=== PATIENT | female | born 1945 | race Caucasian/White ===

== ENCOUNTER 2023-04-11 01:03 | Day surgery (SDC) | payer MEDICARE, SELFPAY ==
[2023-04-10 15:41] VITALS: BMI 24.8
[2023-04-11] VITALS (12 sets, daily range): BP systolic 100–138; BP diastolic 58–85; PULSE 78–90; RESP 13–18; TEMP 36.4; O2SAT 96–100
--- NOTE | 2023-04-11 12:16 | WPDHPUPDATE1 ---
History and Physical Update Update Date/Time: 04/11/23 12:16 History and Physical has been reviewed, including an updated exam of the patient. There are NO changes in the patient's condition. Risks, benefits, and alternatives have been discussed and questions answered. Patient agrees to proceed with procedure.
--- NOTE | 2023-04-11 12:16 | WPDMODSED ---
Moderate Sedation Note-Pt Data Patient Data Diagnosis: Aortic stenosis and regurgitation Present Complaint: none Procedure to be performed/Plan: transesophageal echocardiogram Allergies Allergy/AdvReac Type Severity Reaction Status Date / Time No Known Allergies Allergy Unknown Unverified 04/11/23 10:02 Home Medications Medication Instructions Recorded Confirmed Type ascorbic acid (vitamin C) 125 mg 125 mg PO DAILY 04/10/23 04/11/23 History chewable tablet cholecalciferol (vitamin D3) 125 125 mcg PO DAILY 04/10/23 04/11/23 History mcg (5,000 unit) capsule diphenhydramine HCl 50 mg/30 mL 50 mg PO HS 04/10/23 04/10/23 History oral liquid (ZzzQuil) ezetimibe 10 mg tablet 10 mg PO DAILY 04/10/23 04/11/23 History folic acid 1 mg tablet 1 mg PO DAILY 04/10/23 04/11/23 History garlic 400 mg tablet,delayed 400 mg PO DAILY 04/10/23 04/11/23 History release infliximab-abda 100 mg intravenous 100 mg IV DIRECTED 04/10/23 04/10/23 History solution (Renflexis) lactobacillus combination no.8 3 3 cell PO DAILY 04/10/23 04/11/23 History billion cell capsule levothyroxine 50 mcg tablet 50 mcg PO DAILY 04/10/23 04/11/23 History methotrexate sodium 2.5 mg tablet See Rx Instructions .Route .COMPLEX 04/10/23 04/11/23 History multivitamin-ferrous 1 tablet PO DAILY 04/10/23 04/11/23 History fumarate-folic acid 18 mg-400 mcg tablet (Centrum Women) nifedipine 30 mg tablet,extended 30 mg PO DAILY 04/10/23 04/11/23 History release prednisone 5 mg tablet 5 mg PO BID 04/10/23 04/11/23 History psyllium 1 packet PO TID 04/10/23 04/11/23 History tramadol 50 mg tablet 50 mg PO BID 04/10/23 04/11/23 History venlafaxine 37.5 mg tablet 37.5 mg PO DAILY 04/10/23 04/11/23 History vitamin B complex (B 1 tablet PO DAILY 04/10/23 04/11/23 History Complex-Vitamin B12 tablet) Current Medications: see medication list Sedation/Anesthesia: No previous sedation/anesthesia problems (including family history). PMFSH Past Medical History Medical History (Updated 04/11/23 @ 12:18 by Bruce Atkins MD) Aortic regurgitation Aortic stenosis Hypertension Mixed hyperlipidemia Social History Social History Smoking status: Current every day smoker Tobacco type: e-cigarettes/vaping Substance use type: does not use Living arrangements: alone Spiritual care concerns: No Mod Sed Physical Exam Physical Exam Pre Procedural Exam: Normal: Appearance, Eyes, Ears, Nose, Neck ( supple, normal range of motion), Throat ( posterior hypopharynx clear, nonerythematous), Airway ( normal anatomy, no obstruction), Lungs, Heart Size, Heart Rate, Heart Rhythm, Neuro Exam, Abdomen, Liver, Extremities and Skin Hours since solid foods: 12 Hours since liquid intake: 12 Mallampati Classification: class III Internal Medicine - PN: Obj Da Vital Signs Vital Signs: Vital Signs - 24 hr 04/11/23 09:55 04/11/23 11:45 04/11/23 11:50 Temperature 36.4 C Pulse Rate 78 81 78 Respiratory Rate 17 14 13 Blood Pressure 133/66 130/66 133/69 Pulse Oximetry 98 98 96 Oxygen Delivery Room Air Room Air Nasal Cannula Oxygen Flow Rate 3 04/11/23 11:55 04/11/23 12:00 04/11/23 12:05 Temperature Pulse Rate 80 82 84 Respiratory Rate 16 13 13 Blood Pressure 129/58 L 135/69 125/69 Pulse Oximetry 97 99 99 Oxygen Delivery Nasal Cannula Nasal Cannula Nasal Cannula Oxygen Flow Rate 3 3 3 04/11/23 12:10 Temperature Pulse Rate 90 Respiratory Rate 17 Blood Pressure 138/68 Pulse Oximetry 100 Oxygen Delivery Nasal Cannula Oxygen Flow Rate 3 ASA Classification/Sedation ASA Classification/Sedation ASA Class: III Emergent: No Risks: Risks, benefits and alternatives explained and patient/family accepted plan for sedation. Patient re-evaluated immediately prior to sedation.
--- NOTE | 2023-04-11 12:20 | WPDTEECHO ---
[facility] TransEsophageal Echocardiogram Date of procedure: 04/11/23 Procedure Type: transesophageal echocardiogram Diagnosis: aortic stenosis and regurgitation Indications: aortic stenosis and regurgitation Image Quality: acceptable Findings: Brief history present illness: Patient is a pleasant 77 year old female with a history of tobacco abuse, pulmonary hypertension, hypertension, hyperlipidemia, rheumatoid arthritis with complaints of exertional dyspnea who had a 2D echocardiogram performed which was reported as moderate to severe aortic regurgitation however on personal review least moderate aortic stenosis unless significant aortic regurgitation apparent we given discrepancy and patient's complaints of shortness of breath she was referred for transesophageal echocardiogram for further evaluation. Procedure in detail: After verbal and written informed consent was obtained the patient risks, benefits, and alternatives explained in detail the patient agreed to proceed with the plan of care as outlined above. The patient was evaluated at bedside in the [facility] procedure room. The posterior oropharynx, neck, and jaw angle all within normal limits on examination. Lungs were clear to auscultation. See pre-sedation note for further details The patient was then placed in the appropriate 30 to 45 degree angle supine position at a slight left lateral decubitus position. Patient was monitored throughout the study with telemetry, oxygen saturation, end-tidal CO2 monitoring, blood pressure, heart rate, and respirations. The posterior hypopharynx was then locally anesthetized using repeated administration of Hurricaine spray as well as gargled viscous lidocaine. After local anesthetic of the posterior hypopharynx was achieved and the oral bite block placed, moderate sedation was administered. After confirmation of adequate moderate sedation, the transesophageal echocardiogram probe was advanced through the oral bite block into the posterior hypopharynx and into the esophagus easily and without complication. Multiple, multiplanar echocardiographic images were obtained in multiple standard re- projections. Pulsed wave, continuous-wave, and color-flow Doppler were utilized in conjunction with this study. At the conclusion of the study, the transesophageal echocardiogram probe was removed easily and without complication. The patient tolerated the procedure well without difficulty. Patient was in sinus rhythm throughout the study. Moderate Sedation/Anesthesia administration: Patient reports no prior problems with sedation/anesthesia. Please see pre-sedation noted for physical examination documentation. As noted above, after adequate local anesthesia of the posterior hypopharynx was achieved, a total of 2 mg intravenous Versed and a total of 50 mcg intravenous Fentanyl in multiple divided doses was administered for moderate sedation. Sedation start time was 1148 and end time was 1214 for a total intra-service/procedure face-face time of 26 minutes. Sedation was administered by a qualified/certified observer Erendira Burkett RN under my supervision with intra-procedure [id number] observation and management throughout the entirety of the procedure. There were no other issues or complications and patient tolerated the procedure well. See post-anesthesia documentation. FINDINGS: LEFT VENTRICLE: Size and systolic function were within normal limits without wall motion abnormalities with ejection fraction of 75% with mild to moderate concentric left ventricular hypertrophy. RIGHT VENTRICLE: Size and systolic function within normal limits. LEFT ATRIUM: mild enlargement RIGHT ATRIUM: Normal size. echogenic mobile structure arising from the posterior wall most likely consistent with prominent remnant eustachian valve which is a normal variant. in other views there appeared to be an echogenic structure unclear for his truly within the right atrium
== END 2023-04-11 13:30 | disposition home or self-care (01) ==
PROVIDERS: PCP Internal Medicine; Visit Provider Internal Medicine Cardiovascular Disease
PROC: (CPT 93312; principal; 2023-04-11 11:00)
DX: I35.2 Nonrheumatic aortic (valve) stenosis with insufficiency (principal); R06.00 Dyspnea, unspecified; I10 Essential (primary) hypertension; E78.5 Hyperlipidemia, unspecified; I27.20 Pulmonary hypertension, unspecified; Z72.0 Tobacco use
CPT/HCPCS: 93312; 93320; 93325; J2250; J2310; J3010; J7040

== ENCOUNTER 2023-06-27 08:50 | Outpatient (CLI) | payer MEDICARE, SELFPAY ==
--- NOTE | 2023-07-02 16:56 | WPDPFTINT ---
PFT Procedure Performed PFT Procedure Performed Plethysmography (Lung Vol) Diffusing Cap (DLCO) Flow Vol Loop Spirometry w/o Bronchodil PFT Interpretation DOS: 06/27/2023 REQUESTING: Dary Atkins MD REASON FOR TESTING: Dyspnea on exertion PULMONARY FUNCTION TESTS Results are reliable and reproducible. Spirometry: FEV1 is 1.73 L, 109%, normal. FVC is 2.32 L, 113%, normal. FEV1/FVC is 74%, normal. No bronchodilator was not given. Lung volumes: Total lung capacity is 4.28 L, 103%, normal. Residual volume is 1.67 L, 81%, normal. RV/TLC is 39%, normal. Airway resistance is normal. Diffusion: DLCO is 15.3, 90%, normal. DLCO/VA is 4.82, 109%, normal. Flow volume loop: Normal. IMPRESSION: Normal spirometry, normal lung volumes, normal diffusion. No bronchodilator was given. No prior study is available for comparison. Yris Ibrahim MD
== END 2023-06-27 08:51 | disposition home or self-care (01) ==
PROVIDERS: PCP Internal Medicine; Visit Provider Internal Medicine Cardiovascular Disease
DX: R06.09 Other forms of dyspnea (principal); Z72.0 Tobacco use
CPT/HCPCS: 94375; 94726; 94729

== ENCOUNTER 2024-05-07 12:04 | Outpatient (CLI) | payer MEDICARE, SELFPAY ==
--- NOTE | ~2024-05-07 | XR_ITS ---
3 VIEWS LUMBAR SPINE Ordering provider: Noman Robles, History: . LOW BACK PAIN . Comparison: None. FINDINGS: VERTEBRAL BODIES: No visible fracture or subluxation. Postoperative changes in the lower lumbar area. Degenerative changes of the spine. DISK SPACES: Degenerative changes involving the lower thoracic and all lumbar area. SOFT TISSUES: Normal. Atherosclerotic changes. Right hip arthroplasty. IMPRESSION: No acute osseous abnormality lumbar spine. Reviewed, dictated and finalized at location A.
[2024-05-07 13:01] LABS: Basophils Percent Auto 0.4 % (0.2-1.2); Eosinophils Percent Auto 0.3 % (0-4.4); Hematocrit 42.8 % (37.0-47.0); Hemoglobin 13.9 g/dL (12.0-15.0); Immature Granulocyte Absolute 0.02 K/mm3 (0.00-0.031); Immature Granulocyte Percent A 0.3 % (0-0.5); Lymphocytes Absolute Auto 0.59 K/mm3 (0.9-3.2); Lymphocytes Percent Auto 8.7 % (18.3-44.2); Mean Corpuscular HGB Conc 32.5 g/dl (32-36); Mean Corpuscular Hemoglobin 33.4 pg (26-34); Mean Corpuscular Volume 102.9 fl (80-100); Mean Platelet Volume 9.8 fl (7.4-10.4); Monocytes Absolute Auto 0.3 K/mm3 (0.1-0.6); Monocytes Percent Auto 4.7 % (2.6-8.5); Neutrophils Absolute Auto 5.8 K/mm3 (1.3-6.7); Neutrophils Percent Auto 85.6 % (45.5-73.1); Platelet Count Result 300 k/mm3 (150-375); Red Blood Count 4.16 M/mm3 (4.2-5.4); Red Cell Distribution Width 14.5 % (11.5-14.5); White Blood Count 6.8 K/mm3 (4.5-10.0)
[2024-05-07 13:48] LABS: Free T4 Free Thyroxine 1.18 ng/mL (0.78-2.19)
[2024-05-07 13:53] LABS: Alanine Aminotransferase 19 U/L (6-35); Albumin Level 4.4 g/dL (3.5-5.1); Alkaline Phosphatase 76 U/L (38-126); Anion Gap 4 mmol/L (4-12); Aspartate Amino Transferase 30 U/L (14-36); Bilirubin,Total 0.6 mg/dL (0.2-1.3); Blood Urea Nitrogen 19 mg/dL (7-17); Calcium 9.3 mg/dL (8.4-10.2); Carbon Dioxide 32 mmol/L (22-30); Chloride 103 mmol/L (98-107); Cholesterol 240 mg/dL (0-200); Estimated Glomerular Filt Rate > 60; Glucose 108 mg/dL (65-110); Potassium 4.4 mmol/L (3.4-5.0); Sodium 139 mmol/L (137-145); Triglycerides 112 mg/dL (<150)
[2024-05-07 13:56] LABS: LDL Cholesterol Direct 100 mg/dL
[2024-05-07 15:15] LABS: Folic Acid > 20.0 ng/mL (2.76->20)
[2024-05-07 15:19] LABS: HDL Direct 118 mg/dL
[2024-05-08 11:03] LABS: Triiodothyronine T3 Free 2.5 pg/mL (2.3-4.2)
== END 2024-05-07 12:05 | disposition home or self-care (01) ==
PROVIDERS: PCP Internal Medicine; Visit Provider Internal Medicine
DX: M54.50 Low back pain, unspecified (principal); R53.83 Other fatigue; I10 Essential (primary) hypertension
CPT/HCPCS: 36415; 72110; 80053; 80061; 82607; 82746; 84439; 84443; 84481; 85025

== ENCOUNTER 2024-07-10 08:16 | Outpatient (CLI) | payer MEDICARE, SELFPAY ==
--- NOTE | ~2024-07-10 | MR_ITS ---
Procedure: MR lumbar spine wo/w con Ordering provider: Batool De La Cruz, COMPRESSED GASES TESTER History:79 years Female with . Radiculopathy, lumbar region . Comparison: None. Technique: MRI lumbar spine with and without contrast. 10 mL MultiHance was given IV. FINDINGS: CONUS MEDULLARIS: Normal in position and appearance with no abnormal enhancement. The conus ends at t he level of L1-L2. LUMBAR VERTEBRAL BODIES: Postoperative changes at the level of L3, L4 and L5. No definite hardware fa ilure seen. Minimal retrolisthesis at the level of L1-L2 and T12-L1. Slight loss of height anteriorly seen in T11and L1 most likely chronic. Edema in T12 is seen acute compression cannot be excluded. Ot herwise, Normal height and alignment. no compression fracture. Heterogenous marrow signal most likely due to marrow reconversion. No abnormal marrow enhancement. DISK SPACES: Narrowing of all disc spaces is seen except L5-S1. T11-T12: No stenosis. Mild disc bulge. Right posterolateral disc protrusion with osteophyte and with slight narrowing of the right lateral recess. T12-L1: No stenosis. Diffuse disc bulge with nerve root in the right and left lateral recess more on the right. L1-L2: No stenosis. Mild thickening of the ligamenta flava. L2-L3: No stenosis. L3-L4: No stenosis. L4-L5: No stenosis. L5-S1: Mild spinal canal stenosis secondary to broad based disc bulge, facet arthropathy, and ligame ntum flavum hypertrophy. Nerve root laterally is seen in the left. PARASPINOUS SOFT TISSUES: Enhancing soft tissue is seen around T12 No abnormal paraspinous enhancemen t. Small left renal cyst. IMPRESSION: Edema in T12 with postcontrast enhancement and surrounding enhancing soft tissue which may indicate a cute compression. Osteomyelitis is not excluded. Follow-up is advised. Postoperative changes. Multilevel degenerative disc. Reviewed, dictated and finalized at location A. IMPRESSION: Edema in T12 with postcontrast enhancement and surrounding enhancing soft tissu e which may indicate acute compression. Osteomyelitis is not excluded. Follow-u p is advised. Postoperative changes. Multilevel degenerative disc.
== END 2024-07-10 08:17 ==
LOC: MICIMG 08:17
PROVIDERS: PCP Nurse Practitioner Family; Visit Provider Nurse Practitioner Family
DX: M54.16 Radiculopathy, lumbar region (principal); M51.36 Other intervertebral disc degeneration, lumbar region
CPT/HCPCS: 72158; A9577

== ENCOUNTER 2024-07-14 15:33 | Outpatient (CLI) | payer MEDICARE, SELFPAY ==
--- NOTE | ~2024-07-14 | MR_ITS ---
EXAMINATION: MR thoracic spine wo/w con DATE: 07/14/2024 16:17 INDICATION: Thoracic spondylosis. Low back pain. TECHNIQUE: Magnetic resonance imaging (MRI) of the thoracic spine was performed without and with 10 m L MultiHance intravenous contrast. COMPARISON: Lumbar spine radiographs 05/07/2024, MRI 07/10/24 FINDINGS: There is 13 degrees dextroscoliosis of thoracic spine and 15 degrees levoscoliosis of thora columbar spine. There are changes of anterior fusion procedure from C4 to C6 with anterior plate and screws. There are changes of posterior fusion procedure from L3 to L5 with pedicle screws. There is 3 mm anterolisthesis of T10 on T11. There is mild chronic anterior wedging of T7, T11, L1, and L2 vert ebral bodies. There is a burst fracture of inferior endplate of T12 with 1/5 loss of height and edema -like signal intensity. There is decreased disc height at many thoracic levels, severe from T8-T9 thr ough L2-L3. At T1-T2, there is a central protrusion with mild central canal stenosis. At T2-T3, there is a central extrusion with mild central canal stenosis. At T6-T7, there is a left central extrusion with mild central canal stenosis. The discs are bulging from T7-T8 through L2-L3 with mild central c anal stenosis. There is multilevel facet joint osteoarthritis, severe at many levels. There is multil evel mild neural foraminal stenosis bilaterally. On the right, there is moderate neural foraminal matt nosis at T10-T11 and L1-L2. On the left, there is moderate neural foraminal stenosis at T7-T8, T8-T9, and T10-T11. 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 IMPRESSION: 1. Subacute T12 burst fracture. 2. Severe thoracic spondylosis. 3. Scoliosis. 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 Reviewed, dictated and finalized at location A.
== END 2024-07-14 15:34 ==
LOC: MICIMG 15:33
PROVIDERS: PCP Nurse Practitioner Family; Visit Provider Nurse Practitioner Family
DX: M47.9 Spondylosis, unspecified (principal); S22.081A Stable burst fracture of T11-T12 vertebra, initial encounter for closed fracture; M43.04 Spondylolysis, thoracic region; M41.9 Scoliosis, unspecified; Q06.4 Hydromyelia
CPT/HCPCS: 72157; A9577

== ENCOUNTER 2024-07-29 15:51 | Outpatient (CLI) | payer MEDICARE, SELFPAY ==
--- NOTE | ~2024-07-29 | XR_ITS ---
3 VIEWS LUMBAR SPINE Ordering provider: Batool De La Cruz, PLANNED GIVING OFFICER History: . LUMBAR RADICULAR PAIN . Comparison: May 15, 2024 FINDINGS: VERTEBRAL BODIES: No visible fracture or subluxation. Postoperative changes in the lower lumbar area. Right hip arthroplasty. Vertebroplasty of T12. DISK SPACES: Normal. SOFT TISSUES: Vascular calcifications. Right sacroiliitis. IMPRESSION: No acute osseous abnormality lumbar spine. Postoperative changes in the lower lumbar area. Reviewed, dictated and finalized at location A.
== END 2024-07-29 15:52 | disposition home or self-care (01) ==
LOC: MICIMG 15:52
PROVIDERS: PCP Nurse Practitioner Family; Visit Provider Nurse Practitioner Family
DX: M54.16 Radiculopathy, lumbar region (principal); Z98.890 Other specified postprocedural states
CPT/HCPCS: 72110

== ENCOUNTER 2024-11-06 13:44 | Outpatient (CLI) | payer MEDICARE, SELFPAY ==
[2024-11-06 14:47] LABS: Add Urine Microscopic? NO; Appearance Urine Clear (Clear); Basophils Percent Auto 0.2 % (0.2-1.2); Bilirubin Urine Negative (Negative); Blood Urine Negative (Negative); Color Urine Yellow (Yellow); Eosinophils Percent Auto 0.2 % (0-4.4); Glucose Urine UA Negative (Negative); Hematocrit 41.4 % (37.0-47.0); Hemoglobin 13.3 g/dL (12.0-15.0); Immature Granulocyte Absolute 0.07 K/mm3 (0.00-0.031); Immature Granulocyte Percent A 0.7 % (0-0.5); Ketones Urine Negative (Negative); Leukocyte Esterase Ur Negative LEU/UL (Negative); Lymphocytes Absolute Auto 0.66 K/mm3 (0.9-3.2); Lymphocytes Percent Auto 6.4 % (18.3-44.2); Mean Corpuscular HGB Conc 32.1 g/dl (32-36); Mean Corpuscular Hemoglobin 33.3 pg (26-34); Mean Corpuscular Volume 103.8 fl (80-100); Monocytes Absolute Auto 0.3 K/mm3 (0.1-0.6); Monocytes Percent Auto 3.3 % (2.6-8.5); Neutrophils Absolute Auto 9.3 K/mm3 (1.3-6.7); Neutrophils Percent Auto 89.2 % (45.5-73.1); Nitrate Urine Negative (Negative); Platelet Count Result 366 k/mm3 (150-375); Protein Urine Negative (Negative); Red Blood Count 3.99 M/mm3 (4.2-5.4); Red Cell Distribution Width 13.4 % (11.5-14.5); Specific Grav Ur 1.022 (1.001-1.035); Urobilinogen Urine 0.2 mg/dL (<2.0); White Blood Count 10.4 K/mm3 (4.5-10.0); pH Urine 5.5 (5.0-9.0)
[2024-11-06 15:15] LABS: Erythrocyte Sedimentation Rate 39 mm/hr (0-20)
[2024-11-06 15:18] LABS: Alanine Aminotransferase 20 U/L (6-35); Albumin Level 4.4 g/dL (3.5-5.1); Alkaline Phosphatase 81 U/L (38-126); Anion Gap 5 mmol/L (4-12); Aspartate Amino Transferase 36 U/L (14-36); Bilirubin,Total 0.6 mg/dL (0.2-1.3); Blood Urea Nitrogen 19 mg/dL (7-17); CRP 2.9 mg/dL (<1.0); Calcium 9.4 mg/dL (8.4-10.2); Carbon Dioxide 31 mmol/L (22-30); Chloride 101 mmol/L (98-107); Estimated Glomerular Filt Rate > 60; Glucose 108 mg/dL (65-110); Sodium 137 mmol/L (137-145)
== END 2024-11-06 13:45 | disposition home or self-care (01) ==
LOC: ANHLAB 13:46
PROVIDERS: PCP Internal Medicine; Visit Provider Nurse Practitioner Family
DX: Z01.818 Encounter for other preprocedural examination (principal); Z79.899 Other long term (current) drug therapy
CPT/HCPCS: 36415; 80053; 81003; 85025; 85652; 86140

== ENCOUNTER 2025-04-27 14:04 | Outpatient (CLI) | payer MEDICARE, SELFPAY ==
--- NOTE | ~2025-04-27 | XR_ITS ---
Lumbosacral Spine: AP and lateral views Clinical History: Pain COMPARISON: 1124 Findings: The normal lordotic curve is maintained. Stable vertebroplasty at T12. Stable posterior fus ion from L3 through L5. Advanced degenerative tearing at L1-L2 and L2-L3 present. Stable probable fac et arthropathy. Neurostimulator device now in place. The sacroiliac joints are normally outlined. Impression: Stable degenerative changes of the lumbar spine. Stable posterior and interbody fusion from L3 throug h L5. Stable T12 compression fracture with vertebroplasty. Reviewed, dictated and finalized at location M. Impression: Stable degenerative changes of the lumbar spine. Stable posterior and interbody fusion from L3 through L5. Stable T12 compression fracture with vertebroplasty .
== END 2025-04-27 14:05 | disposition home or self-care (01) ==
LOC: MICIMG 14:06
PROVIDERS: PCP Internal Medicine; Visit Provider Nurse Practitioner Family
DX: M47.816 Spondylosis without myelopathy or radiculopathy, lumbar region (principal); S22.080D Wedge compression fracture of T11-T12 vertebra, subsequent encounter for fracture with routine healing; X58.XXXD Exposure to other specified factors, subsequent encounter; Z98.1 Arthrodesis status
CPT/HCPCS: 72110

== ENCOUNTER 2025-04-29 10:18 | Outpatient (CLI) | payer MEDICARE, SELFPAY ==
--- NOTE | ~2025-04-29 | DEXA_ITS ---
Bone Density Report Name: TAMIR NORMAN Age: 79 Sex: Female Ethnicity: White Date of : 1945 Indication: postmenopausal; screening for osteoporosis; height loss; inflammatory bowel disease; prior fracture; hysterectomy; rheumatoid arthritis; Referring Provider: LISA JONES Study: Bone densitometry was performed. Exam Date: April 29, 2025 Accession number: [id number] Bone Density: Region BMD T-score Z-score Classification AP Spine(L1, L2) 1.034 0.5 3.0 Normal Femoral Neck (Left) 0.623 -2.0 0.3 Osteopenia Total Hip (Left) 0.828 -0.9 1.2 Normal World Health Organization criteria for BMD impression classify patients as: Normal (T-score at or above -1.0), Osteopenia (T-score between -1.0 and -2.5), or Osteoporosis (T-score at or below -2.5). 10-year Fracture Risk: FRAX not reported because: Prior hip or vertebral fracture Clinical Information Provided by Patient: Have had a previous hip or vertebral fracture Has had a low trauma fracture Smokes Has rheumatoid arthritis Has used the following medications: Vitamin D, Calcium Has the following medical conditions: Inflammatory bowel diseases, Hysterectomy Patient maximum height was 60 Menopause Age: 22 No regular weight bearing exercise Drinks caffeinated beverages Onset of menses at age 11 Number of children 2 Impression: The patient has low bone mass, based on the Left Femoral Neck T-score. The patient has risk factors, including: smoking, previous fracture. Discussion: INCREASED RISK OF FRACTURE DUE TO HISTORY OF FRACTURE. The patient's previous fracture puts the patient at high risk of a future fracture. In untreated patients, the risk of osteoporotic fracture increases approximately two-fold for each 1.0 SD decrease in T-score. Low bone density is not the only risk factor for fracture; also consider factors such as patient's age, frailty or poor health, risk of falling, risk of injury, previous osteoporotic fracture, family history of osteoporosis, cigarette smoking, low body weight, etc. Not everyone with a low trauma fracture has osteoporosis; osteomalacia and other metabolic bone disorders should also be considered. Patients who have osteoporosis should be evaluated for specific diseases and conditions (secondary causes) that may cause or contribute to bone loss and fracture risk. National Osteoporosis Foundation (NOF) recommends pharmacologic intervention for patients with a prior hip or vertebral fracture regardless of BMD T-score. The patient should follow a healthful lifestyle (good nutrition with adequate calcium and vitamin D, and appropriate weight-bearing exercise). Follow-Up: Consider a repeat BMD and Vertebral Fracture Assessment (VFA) exam in 2 years or sooner if medically necessary, to reassess this patient's status. Reported by: MARION on 04/29/2025 10:39:00 AM. Reviewed, dictated and finalized at location A.
== END 2025-04-29 10:19 | disposition home or self-care (01) ==
LOC: MICIMG 10:19
PROVIDERS: PCP Internal Medicine; Visit Provider Internal Medicine
DX: M85.852 Other specified disorders of bone density and structure, left thigh (principal); Z78.0 Asymptomatic menopausal state
CPT/HCPCS: 77080

== ENCOUNTER 2025-08-11 15:47 | Emergency (ER) | payer MEDICARE, SELFPAY ==
--- OUTSIDE RECORDS SUMMARY | 2025-08-09 13:38 | XMS_ITS | Encounter Summary ---
Author Organization [facility] Healthcare Address [address] [place] [address] Care Team Providers Care Theoretical Physicist Name Role Phone Noman Robles MD Primary Care Provider + [phone] Gabe Cee MD Unavailable [phone] Encounter Details Date Type Department Care Team (Latest Contact Info) Description 08/09/2025 1:38 PM CDT - 08/09/2025 11:59 PM CDT Hospital Encounter [facility] MOB 1 DIAG IMG [address] [place] [address] Wheezing Discharge Disposition: Discharge to home or self care Social History Tobacco Use Types Packs/Day Years Used Date Smoking Tobacco: Former Cigarettes 1.5 40 1 - 2010 Smokeless Tobacco: Never Comments:Patients currently vapes Alcohol Use Standard Drinks/Week Comments Yes 0 (1 standard drink = 0.6 oz pur e alcohol) rare AUDIT-C Answer Date Recorded Q1: How often do you have a drink containing alc ohol? Monthly or less 05/23/2022 Q2: How many drinks containi ng alcohol do you have on a typical day when you are drinking? 1 or 2 05/23/2022 Q3: How often do you have si x or more drinks on one occasion? 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 atorvastatin (LIPITOR) 10 mg tabletIndications :Monoclonal gammopathy Take 1 tablet (10 mg total) by mouth daily 07/26/2025 cholecalciferol (VITAMIN D-3) 2,000 unit capsule 1 capsule (2,000 Units total) cyanocobalamin (Vitamin B-12) 500 mcg tabletIndications :Prevention of Vitamin B12 Deficiency Take 1 tablet (500 mcg total) by mouth daily ezetimibe (ZETIA) 10 mg tablet Take 1 tablet (10 mg total) by mouth daily 01/23/2023 folic acid (FOLVITE) 1 mg tablet 0 12/12/2018 folic acid-vit B6-vit B12 2.5-25-1 mg tablet Take by mouth 05/08/2021 garlic 300 mg capsule Take by mouth levothyroxine (SYNTHROID, LEVOTHROID) 50 mcg tablet 02/10/2019 methotrexate 2.5 mg tablet TK 4 TS PO Q 7 DAYS 2 01/23/2019 NIFEDIPINE CC 30 mg 24 hr tablet TK 1 T PO QD 5 01/28/2019 predniSONE (DELTASONE) 2.5 mg tabletIndications :Monoclonal gammopathy Take 1 tablet (2.5 mg) by mouth daily 08/09/2025 traMADol (ULTRAM) 50 mg tablet TK 1 T PO TID PRN 2 01/28/2019 venlafaxine XR (EFFEXOR-XR) 75 mg 24 hr capsuleIndication s:Monoclonal gammopathy Take 1 capsule (75 mg total) by mouth daily 07/29/2025 documented as of this encounter Discharge Disposition Disposition Code Departure Means Destination Discharge to home or self care documented in this encounter Plan of Treatment Not on file documented as of this encounter Procedures Procedure Name Priority Date/Time Associated Diagnosis Comments XR CHEST PA LATERAL 2 VIEWS Schedule Routine, Read Routine (OP Routine) 08/09/2025 2:29 PM CDT Wheezing documented in this encounter Results * X-Ray chest 2 views (08/09/2025 2:29 PM CDT) Anatomical Region Laterality Modality Body, Chest N/A Computed Radiogr aphy 08/10/2025 1:51 PM CDT Narrative 08/10/2025 1:55 PM CDT EXAM DESCRIPTION: XR CHEST PA LATERAL 2 VIEWS REASON FOR STUDY: Wheezing Pt states she has had shortness of breath for a while, wheezing at dr appt today TECHNIQUE: 2 radiographic view(s) of the chest. COMPARISON: 12/08/2015. FINDINGS: LUNGS: There is no discrete consolidation. Granulomatous calcifications are present bilaterally. There is no effusion or pneumothorax. HEART/MEDIASTINUM: Cardiac silhouette and mediastinal contours are within normal limits. Atherosclerotic vascular calcifications are present. LINES/TUBES: Spinal stimulator leads are noted, terminating at approximately T6. Bilateral shoulder arthroplasty hardware is present. Cervical fusion hardware. BONES: There are kyphoplasty changes and compression fracture deformity at what appears to be the T12 level. Correlate with procedural history. There is a compression deformity suggested at T11. Partial visualization of lumbar fusion hardware. IMPRESSION: No acute cardiopulmonary process. Chronic compression deformity and kyphoplasty changes at T12. There is also compression deformity suggested at T11, not well evaluated on this examination. Correlate with clinical history as well as any point tenderness on clinical exam. Dedicated radiographs can be obtained as warranted on a clinical basis. THIS IS AN ELECTRONICALLY VERIFIED FINAL REPORT 08/10/2025 1:55 PM - Electronically signed by Rimma Burrell M.D. TW: TW Report ID: [id number] Reading Location: [id number] Procedure Note Rimma Burrell MD - 08/10/2025 EXAM DESCRIPTION: XR CHEST PA LATERAL 2 VIEWS REASON FOR STUDY: Wheezing Pt states she has had shortness of breath for a while, wheezing at drappt today TECHNIQUE: 2 radiographic view(s) of the chest. COMPARISON: 12/08/2015. FINDINGS: LUNGS: There is no discrete consolidation. Granulomatous calcifications are present bilaterally. There is no effusion orpneumothorax. HEART/MEDIASTINUM: Cardiac silhouette and mediastinal contours are within normal limits. Atherosclerotic vascular calcifications are present. LINES/TUBES: Spinal stimulator leads are noted, terminating atapproximately T6. Bilateral shoulder arthroplasty hardware is present. Cervical fusion hardware. BONES: There are kyphoplasty changes and compression fracture deformityat what appears to be the T12 level. Correlate with procedural history.There is a compression deformity suggested at T11. Partial visualization oflumbar fusion hardware. IMPRESSION: No acute cardiopulmonary process. Chronic compression deformity and kyphoplasty changes at T12. There isalso compression deformity suggested at T11, not well evaluated on this examination. Correlate with clinical history as well as any pointtenderness on clinical exam. Dedicated radiographs can be obtained as warranted on a clinical basis. THIS IS AN ELECTRONICALLY VERIFIED FINAL REPORT 08/10/2025 1:55 PM - Electronically signed by Rimma Burrell M.D. TW: KAY Report ID: [id number] Reading Location: [place] [address] FINANCIAL SERVICES AUDITOR IMG XR PROCEDURES Kaylie l Result documented in this encounter Visit Diagnoses Diagnosis Wheezing documented in this encounter Care Teams Theoretical Physicist Relationship Specialty Start Date End Date Noman Robles MD PCP - General 02/18/18 Gabe Cee MD [address] [place] [address] Consulting Physician Rheumatology 08/17/24 documented as of this encounter
--- OUTSIDE RECORDS SUMMARY | 2025-08-09 13:38 | XMS_ITS | Encounter Summary ---
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 TW: TW Report ID: [id number] Reading Location: [id number] Procedure Note Rimma Burrell MD - 08/10/2025 [...] Rimma Burrell M.D. TW: KAY Report ID: [id number] Reading Location: [place] [address] COUNTER TOP MAKER IMG XR PROCEDURES Kaylie l Result documented in this encounter Visit Diagnoses Diagnosis Wheezing documented in this encounter Care Teams Meter Reading Clerk Relationship Specialty Start Date End Date Noman Robles MD PCP - General 02/18/18 Gabe Cee MD [address] [place] [address] Consulting Physician Rheumatology 08/17/24 documented as of this encounter
--- NOTE | ~2025-08-11 | XR_ITS ---
EXAMINATION: XR chest 2V 08/11/2025 16:58 INDICATION: Chest pain and shortness of breath PROCEDURE: 2 view chest COMPARISON: No prior studies for comparison. FINDINGS: The lungs are clear. The cardiomediastinal silhouette is within normal limits. There are no pleural effusions. There is no pneumothorax suspected. There is a wedge compression fracture of a lower thoracic vertebra treated with vertebroplasty changes. Spinal stimulator leads overlying the mid thoracic spine. There are bilateral shoulder arthroplasties. There are calcified granulomas in both lungs. IMPRESSION: 1: NO ACUTE CARDIOPULMONARY DISEASE. Reviewed, dictated and finalized at location O.
--- NOTE | ~2025-08-11 | CT_ITS ---
EXAMINATION: CTA brain carotid DATE: 08/11/2025 18:06 CDT INDICATION: Dizziness TECHNIQUE: Computed tomographic angiography (CTA) of the head was performed without and with 100 mL Omnipaque-350 intravenous contrast. CTA of the neck was performed with intravenous contrast. The dose-length product was 1486.92 mGy-cm. Maximum intensity projection and volume rendered 3D-reconstructions were created by the technologist on a separate workstation. COMPARISON: None. FINDINGS: HEAD CTA: Generalized atrophy. There are scattered mild periventricular and subcortical white matter changes, most likely related to small vessel ischemic disease (microangiopathy). There is chronic left lacunar infarction of the internal capsule. There is intracranial atherosclerosis. No acute intracranial hemorrhage or infarction. No ventriculomegaly or midline shift. Mild mucosal thickening of the right maxillary sinus. Mastoids are pneumatized. No depressed skull fractures. Codominant vertebral arteries. The anterior, middle and posterior cerebral arteries are within normal limits without significant stenosis, occlusion or aneurysm. NECK CTA: There is mild atherosclerosis of the proximal internal carotid arteries with 35% stenosis in the right internal carotid artery proximally and less than 10% stenosis in the left internal carotid artery. No evidence for carotid dissection. The vertebral arteries are normal in course and caliber through their extent. The origin of the vertebral and carotid arteries are patent. No cervical lymphadenopathy. IMPRESSION: 1: No acute intracranial abnormality. 2: Chronic left lacunar infarction. 3: No significant vascular abnormality of the head or neck. Reviewed, dictated and finalized at location O.
--- OUTSIDE RECORDS SUMMARY | 2025-08-11 15:50 | XMS_ITS | Encounter Summary ---
Author Organization [facility] Healthcare Address [address] [place] [address] Care Team Providers Care Belt Brander Name Role Phone Noman Robles MD Primary Care Provider + [phone] Gabe Cee MD Unavailable [phone] Encounter Details Date Type Department Care Team (Late st Contact Info) Description 10/30/2024 Orders Only [facility] [address] [place] [id number] Scanning, Provider Social History Tobacco Use Types Packs/Day Years Used Date Smoking Tobacco: Former Cigarettes 1.5 40 1 971 - 2010 Smokeless Tobacco: Never Comments:Patients currently [...] on file 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 Gender Identity Not on file Sexual Orientation Not on file documented as of this encounter Plan of Treatment Not on file documented as of this encounter Procedures Procedure Name Priority Date/Time Associated Diagnosis Comments SCAN - LABS 10/30/2024 documented in this encounter Results * SCAN - LABS (10/30/2024) us Provider Scanning Final Result documented in this encounter Visit Diagnoses Not on filedocumented in this encounter Care Teams Belt Brander Relationship Specialty Start Date End Date Noman Robles MD PCP - General 02/18/18 Gabe Cee MD [address] [place] [address] Consulting Physician Rheumatology 08/17/24 documented as of this encounter
--- OUTSIDE RECORDS SUMMARY | 2025-08-11 15:50 | XMS_ITS | Clinical Summary ---
Author Organization [facility] Address [address] [place] [address] Phone Care Team Providers Care Internet Researcher Name Role Phone Noman Robles MD Primary Care Provider + [phone] Gabe Cee MD Unavailable [phone] Allergies Active Allergy Reactions Criticality Noted Date Comments Oxycodone Other (See comments) Low 11/03/2024 Dxstzmm-Rfz-Byi Reductase Inhibitors Fatigue Low 03/07/2023 atorvastatin Medications levothyroxine (SYNTHROID, LEVOTHROID) 50 mcg tablet 9 Active NIFEDIPINE CC 30 mg 24 hr tablet TK 1 T PO QD 5 9 Active traMADol (ULTRAM) 50 mg tablet TK 1 T PO TID PRN 2 9 Active folic acid (FOLVITE) 1 mg tablet 0 9 Active methotrexate 2.5 mg tablet TK 4 TS PO Q 7 DAYS 2 9 Active cholecalciferol (VITAMIN D-3) 2,000 unit capsule 1 capsule (2,000 Units total) Active cyanocobalamin (Vitamin B-12) 500 mcg tabletIndicatio ns:Prevention of Vitamin B12 Deficiency Take 1 tablet (500 mcg total) by mouth daily Active folic acid-vit B6-vit B12 2.5-25-1 mg tablet Take by mouth 1 Active ezetimibe (ZETIA) 10 mg tablet Take 1 tablet (10 mg total) by mouth daily 3 Active ascorbic acid, vitamin C, 125 mg tablet,chewable Vitamin C 125 mg chewable tablet Take 2 tablets by oral route. Active garlic 300 mg capsule Take by mouth Active atorvastatin (LIPITOR) 10 mg tabletIndicatio ns:Monoclonal gammopathy Take 1 tablet (10 mg total) by mouth daily 5 Active predniSONE (DELTASONE) 2.5 mg tabletIndicatio ns:Monoclonal gammopathy Take 1 tablet (2.5 mg) by mouth daily 5 Active venlafaxine XR (EFFEXOR-XR) 75 mg 24 hr capsuleIndicati ons:Monoclonal gammopathy Take 1 capsule (75 mg total) by mouth daily 5 Active venlafaxine (EFFEXOR) 37.5 mg tablet 9 08/09/20 Discontinu ed(Patient Reported) predniSONE (DELTASONE) 5 mg tablet TK 2 TS PO D 2 9 08/09/20 Discontinu ed(Patient Reported) Active Problems Problem Noted Date Diagnosed Date Nonrheumatic aortic valve stenosis 05/17/2023 Nonrheumatic aortic (valve) insufficiency 2022 Rheumatoid arthritis 03/07/2023 Exertional chest pain 03/07/2023 Pulmonary HTN 03/07/2023 THOMAS (dyspnea on exertion) 03/07/2023 Chronic fatigue 03/07/2023 Primary hypertension 03/07/2023 Tobacco abuse 03/07/2023 Screening for AAA (abdominal aortic aneurysm) Mixed hyperlipidemia 03/07/2023 Monoclonal gammopathy 02/11/2019 Pain in shoulder 10/21/2015 Encounters Date Type Department Care Team Description 08/09/2025 1:38 PM CDT - 08/09/2025 11:59 PM CDT Hospital Encounter [facility] MOB 1 DIAG IMG [address] [place] [address] Wheezing Discharge Disposition: Discharge to home or self care 08/09/2025 1:00 PM CDT [facility] [facility] [address] [place] [address] NP Monoclonal gammopathy (Primary Dx); Wheezing 08/09/2025 12:00 PM CDT Lab [facility] at [address] [address] Monoclonal gammopathy 06/04/2025 9:40 AM CDT - 06/04/2025 11:59 PM CDT Hospital Encounter [facility] Radiology [address] [place] [address] Discharge Disposition: Discharge to home or self care 06/04/2025 9:40 AM CDT - 06/04/2025 11:59 PM CDT Hospital Encounter [facility] [address] [place] [address] Left ventricular hypertrophy Discharge Disposition: Discharge to home or self care 06/04/2025 Results Follow-Up [facility] Cardiology [address] [facility] [address] [place] [phone] Gabby Randolph RN NM Myocardial Amyloidosis Imaging SPECT/CT 06/03/2025 Telephone [facility] Cardiology [address] [place] [address] [place] [phone] Anne Juan NP 06/02/2025 Telephone [facility]iology [address] [facility] [address] [place] [phone] Anthony Campbell MD 05/27/2025 Telephone [facility]iology [address] [facility] [address] [place] [phone] Anthony Campbell MD from Last 3 Months Immunizations Immunization Administration Dates Next Due Influenza, Quadrivalent, Hig h Dose, Preservative Free, Intrr 07/08/2020 Influenza, Trivalent, High D ose, Split, Preservative Free, Intramuscular 07/15/2018 Surgical History Surgery Date Site/Laterality Comments HYSTERECTOMY OOPHORECTOMY SHOULDER ARTHROPLASTY Bilateral THYROID SURGERY BREAST BIOPSY CARPAL TUNNEL RELEASE Bilateral CYST REMOVAL COLONOSCOPY Medical History Medical History Date Comments MGUS (monoclonal gammopathy of unknown significa nce) Hypercholesteremia Hypertension Family History Medical History Relation Name Comments Prostate cancer Brother No Known Problems Father Brain cancer Mother Lung cancer Mother Relation Name Status Comments Brother Alive Father Mother Sister Alive Social History Tobacco Use Types Packs/Day Years Used Date Smoking Tobacco: Former Cigarettes 1.5 40 1 971 - 2010 Smokeless Tobacco: Never Tobacco Cessation:Counseling Given: Not Answered Comments:Patients currently vapes Alcohol Use Standard Drinks/Week [...] on file Legal Sex Female 12:56 PM [employer] Gender Identity Not on file Sexual Orientation Not on file Obstetrics History Last Filed Vital Signs Vital Sign Reading Time Taken Comments Blood Pressure 120/71 08/09/2025 12:59 PM CDT Pulse 84 08/09/2025 12:59 PM CDT Temperature 36.6 C (97.9 F) 08/09/2025 12:59 PM CDT Respiratory Rate 17 08/09/2025 12:59 PM CDT Oxygen Saturation 94% 08/09/2025 12:59 PM CDT Inhaled Oxygen Concentration - - Weight 55 kg (121 lb 4.1 oz) 08/09/2025 12:59 PM CDT no shoes Height 144 cm (4' 8.69) 08/09/2025 12:59 PM CDT no shoes Body Mass Index 26.52 08/09/2025 12:59 PM CDT Plan of Treatment Health Maintenance Due Date Last Done Comments Depression Screening 1944 Fall Risk Assessment 1944 Osteoporosis Screening-Bone Density Scan 1944 Hepatitis B Screening 1962 Well Visit 65+ 2009 Zoster Vaccine (1 of 2) 01/13/2013 11/18/2012 Pneumococcal vaccine 65+ (2 of 2 - PPSV23, PCV20, or PCV21) 12/03/2017 10/08/2017, 11/18/2012 Covid-19 Vaccine (5 - 2024-2 6 season) 2025 06/17/2022, 09/13/2021, 02/06/2021, Additional history exists Influenza Vaccine (#1) 2025 , 08/18/2022, 07/28/2021, Additional history exists DTaP/Tdap/Td Vaccine (2 - Td or Tdap) 05/07/2035 05/07/2025 Medical Devices Implanted Type Area Compliance Engineer Products Device Identifier Shelf Expiration Date Model / Serial / Lot B/L Shoulder Replacement Endoprosthesis Bilateral: Shoulder Procedures Procedure Name Priority Date/Time Associated Diagnosis Comments XR CHEST PA LATERAL 2 VIEWS Schedule Routine, Read Routine (OP Routine) 08/09/2025 2:29 PM CDT Wheezing EGFR Routine 08/09/2025 12:01 PM CDT Monoclonal gammopathy DIFFERENTIAL AUTO Routine 08/09/2025 12: 01 PM CDT Monoclonal gammopathy BETA 2 MICROGLOBULIN SERUM Routine 08/09/2025 12:01 PM CDT Monoclonal gammopathy CBC WITH AUTO DIFFERENTIAL Routine 08/09/2025 12:01 PM CDT Monoclonal gammopathy COMPREHENSIVE METABOLIC PANEL Routine 08/09/2025 12:01 PM CDT Monoclonal gammopathy IGA Routine 08/09/2025 12:01 PM CDT Monoclonal gammopathy IGG Routine 08/09/2025 12:01 PM CDT Monoclonal gammopathy IGM Routine 08/09/2025 12:01 PM CDT Monoclonal gammopathy IMMUNOTYPING Routine 08/09/2025 12:01 PM CDT Monoclonal gammopathy IMMUNOGLOBULIN FREE LIGHT CHAINS Routine 08/09/2025 12:01 PM CDT Monoclonal gammopathy LACTATE DEHYDROGENASE Routine 08/09/2025 12:01 PM CDT Monoclonal gammopathy PROTEIN ELECTROPHORESIS, WITH REFLEX, SERUM Routine 08/09/2025 12:01 PM CDT Monoclonal gammopathy NM MYOCARDIAL AMYLOIDOSIS IMAGING SPECT/CT Schedule Routine, Read Routine (OP Routine) 06/04/2025 1:44 PM CDT Left ventricular hypertrophy from Last 3 Months Results * X-Ray chest 2 views (08/09/2025 [...] Rimma Burrell M.D. TW: KAY Report ID: [id number] Reading Location: [id number] Procedure Note Rimma Burrell MD - 08/10/2025 [...] Rimma Burrell M.D. TW: TW Report ID: [id number] Reading Location: [place] [address] MECHANIC IMG XR PROCEDURES Kaylie l Result * Immunotyping, serum with interpretation (08/09/2025 12:01 PM CDT) Immunosubtraction Please see comment Comment: IGG LAMBDA PARAPROTEIN Reviewed and signed by Chandrika Ross MD, PhD 08/10/2025 Testing performed by: [facility], [address] [facility], [place]., [address] Blood 08/09/2025 12:0 1 PM CDT 08/09/2025 3:26 PM CDT Vickie Ness MD LAB BLOOD ORDERABLES Final Result Performing Organization Address [facility] de Phone Number [place] [phone] [facility] [place] [address] * eGFR (08/09/2025 12:01 PM CDT) eGFR 74 >=60 mL/min/1. 73 m2 Comment: Interpretive Data Reference Interval Normal >/= 90 mL/min/1.73m2 Mildly decreased* 60 - 89 mL/min/1.73m2 Mildly to moderately decreased 45 - 59 mL/min/1.73m2 Moderately to severely decreased 30 - 44 mL/min/1.73m2 Severely decreased 15 - 29 mL/min/1.73m2 Kidney Failure < 15 mL/min/1.73m2 *Relative to young adult level Estimated glomerular filtration rate is determined by the 2020 CKD-EPI equation recommended by the National Kidney Foundation (A Unifying Approach to GFR Estimation: Recommendations of the NKF-ASK Task Force on Reassessing the Inclusion of Race in Diagnosing Kidney Disease, JASN 2020). The CKD-EPI equation should not be used for patients with unstable renal function and has not been validated in children and those over 70. Current interpretive data was last reviewed 2021. Testing performed by: [address] [address] Blood 08/09/2025 12:0 1 PM CDT 08/09/2025 12:04 PM CDT Vickie Ness MD LAB BLOOD ORDERABLES Final Result Performing Organization Address [facility] de Phone Number [facility] [place] [address] [facility] Department [place] [address] * (ABNORMAL) Differential, auto (08/09/2025 12:01 PM CDT) Neutrophil abs 11.28(H) 1.50 - 6.50 K/cumm Comment:Testing performed by : [address] [address] Imm gran abs 0.07 0.00 - 0.10 K/cumm JAYESH Comment:Testing performed by : [address] [address] Lymphocyte abs 0.62(L) 0.80 - 3.30 K/cumm JAYESH Comment:Testing performed by : [address], [place]., [address] Monocyte abs 0.44 0.20 - 0.80 K/cumm JAYESH Comment:Testing performed by : [address] [address] Eosinophil abs 0.02 0.00 - 0.50 K/cumm JAYESH Comment:Testing performed by : [address], [place]., [address] Basophil abs 0.03 0.00 - 0.10 K/cumm JAYESH Comment:Testing performed by : [address] [address] Neutrophil pct 90.5 % JAYESH Comment: Interpretive Data Percent cell count reference ranges are not reported, since discordance with absolute values may lead to misinterpretation of CBC data. Current Interpretive Data was last revised on 2018. Testing performed by: [address] [address] Imm gran pct 0.6 % JAYESH Comment: Interpretive Data Percent cell count reference ranges are not reported, since discordance with absolute values may lead to misinterpretation of CBC data. Current Interpretive Data was last revised on 2018. Testing performed by: [address] [address] Lymphocyte pct 5.0 % JAYESH Comment: Interpretive Data Percent cell count reference ranges are not reported, since discordance with absolute values may lead to misinterpretation of CBC data. Current Interpretive Data was last revised on 2018. Testing performed by: [address] [address] Monocyte pct 3.5 % CERNAIN Comment: Interpretive Data Percent cell count reference ranges are not reported, since discordance with absolute values may lead to misinterpretation of CBC data. Current Interpretive Data was last revised on 2018. Testing performed by: [address] [address] Eosinophil pct 0.2 % JAYESH RICK Comment: Interpretive Data Percent cell count reference ranges are not reported, since discordance with absolute values may lead to misinterpretation of CBC data. Current Interpretive Data was last revised on 2018. Testing performed by: [facility], [address] [place] [address]., [address] Basophil pct 0.2 % JAYESH RICK Comment: Interpretive Data Percent cell count reference ranges are not reported, since discordance with absolute values may lead to misinterpretation of CBC data. Current Interpretive Data was last revised on 2018. Testing performed by: [facility], [address] [place] [address]., [address] Blood 08/09/2025 12:0 1 PM CDT 08/09/2025 12:04 PM CDT Vickie Ness MD LAB BLOOD ORDERABLES Final Result JAYESH [address] [facility] Department [place] [address] * Immunoglobulin free light chains (08/09/2025 12:01 PM CDT) Tomah/Lambda ratio BJ 1.04 0.26 - 1.65 Comment: Interpretive Data The Binding Site FreeLite assay procedure was used. Results from different manufacturers or methods may not be comparable. Serial testing should be performed using the same methods and instrumentation. Current Interpretive Data was last revised on 2024. Testing performed by: [facility], [address] [place]., [address] Tomah free light chain BJH 1.71 0.33 - 1.94 mg/dL JAYESH RICK Comment: Interpretive Data The Binding Site FreeLite assay procedure was used. Results from different manufacturers or methods may not be comparable. Serial testing should be performed using the same methods and instrumentation. Current Interpretive Data was last revised on 2024. Testing performed by: [facility], [address] [place]., [address] Lambda free light chain BJH 1.65 0.57 - 2.63 mg/dL JAYESH RICK Comment: Interpretive Data The Binding Site FreeLite assay procedure was used. Results from different manufacturers or methods may not be comparable. Serial testing should be performed using the same methods and instrumentation. Current Interpretive Data was last revised on 2024. Testing performed by: [facility], [address] [place]., [address] Blood 08/09/2025 12:0 1 PM CDT 08/09/2025 3:26 PM CDT us Vickie Ness MD LAB BLOOD ORDERABLES Final Result JAYESH RICK [facility] Department [place] [address] * (ABNORMAL) CBC with auto differential (08/09/2025 12:01 PM CDT) WBC 12.46(H) 3.80 - 9.90 K/cumm Comment:Testing performed by : [address] [address] Hgb 13.1 11.9 - 15.5 g/dL JAYESH RICK Comment:Testing performed by : [address] [address] Hct 40.5 35.6 - 45.5 % JAYESH RICK Comment:Testing performed by : [address] [address] Plt 364 150 - 400 K/cumm JAYESH RICK Comment:Testing performed by : [address] [address] MPV 9.5 9.1 - 12.3 fL JAYESH RICK Comment:Testing performed by : [address] [address] RBC 4.06 3.90 - 5.20 M/cumm JAYESH RICK Comment:Testing performed by : [address] [address] MCV 99.8(H) 81.3 - 96.4 fL JAYESH RICK Comment:Testing performed by : [address] [address] MCH 32.3 27.1 - 33.3 pg JAYESH RICK Comment:Testing performed by : [address] [address] MCHC 32.3 32.3 - 35.7 g/dL JAYESH RICK Comment:Testing performed by : [address] [address] RDW CV 14.1 11.1 - 14.9 % JAYESH Comment:Testing performed by : [address] [address] RDW SD 50.4(H) 35.7 - 48.1 fL JAYESH Comment:Testing performed by : [address] [address] NRBC abs 0.00 0.00 - 0.01 K/cumm JAYESH Comment:Testing performed by : [address] [address] ANC Prelim 11.28(H) 1.50 - 6.50 K/cumm JAYESH Comment: Interpretive Data The rapid ANC is a preliminary automated count and may vary from the final ANC (Neut Abs) reported in the WBC differential that follows. Current interpretive data was last revised 2025. Testing performed by: [address] [address] Blood 08/09/2025 12:0 1 PM CDT 08/09/2025 12:04 PM CDT us Vickie Ness MD LAB BLOOD ORDERABLES Final Result JAYESH [address] [facility] Department [place] [address] * (ABNORMAL) Protein electrophoresis with reflex, serum with interpretation (08/09/2025 12:01 PM CDT) Protein, sr 6.8 6.2 - 8.2 g/dL Comment:Testing performed by : [facility], 1 [facility], [address] Albumin 4.2 3.2 - 5.0 g/dL JAYESH Comment:Testing performed by : [facility], 1 [facility], [address] Alpha-1 globulin 0.3 0.2 - 0.4 g/dL JAYESH Comment:Testing performed by : [facility], 1 [facility], [address] Alpha-2 globulin 0.7 0.5 - 1.0 g/dL JAYESH Comment:Testing performed by : [facility], [address] [place] [address], [address] Beta-1 globulin 0.4 0.3 - 0.6 g/dL JAYESH Comment:Testing performed by : [facility], [address] [place] [address], [address] Beta-2 globulin 0.4 0.2 - 0.6 g/dL JAYESH Comment:Testing performed by : [facility], [address] [place] [address], [address] Gamma globulin 0.8 0.5 - 1.7 g/dL JAYESH Comment:Testing performed by : [facility], [address] [place] [address], [address] Rstr Pk Gamma 0.2(H) 0.0 - 0.0 g/dL JAYESH Comment:Testing performed by : [facility], [address] [place] [address], [address] SPEP interp Please see comment JAYESH Comment: Abnormal restricted peak in Gamma region See immunotyping for further information Reviewed and signed by Chandrika Ross MD, PhD 08/10/2025 Testing performed by: [facility], [address] [place] [address], [id number] Blood 08/09/2025 12:0 1 PM CDT 08/09/2025 3:26 PM CDT Vickie Ness MD LAB BLOOD ORDERABLES Final Result Performing Organization Address City/[facility]/ZIP Co de Phone Number JAYESH [address] [place] [address] * Lactate dehydrogenase (LD) (08/09/2025 12:01 PM CDT) Lactate dehydrogenase (LDH) 249 100 - 250 Units/L Comment:Testing performed by : [facility], [address] [place] [address], [address] Blood 08/09/2025 12:0 1 PM CDT 08/09/2025 12:04 PM CDT Vickie Ness MD LAB BLOOD ORDERABLES Final Result Performing Organization Address [facility] Co de Phone Number JAYESH [address] [place] [address] * IgA (08/09/2025 12:01 PM CDT) Immunoglobulin A 132 70 - 400 mg/dL Blood 08/09/2025 12:0 1 PM CDT 08/09/2025 4:37 PM CDT Vickie Ness MD LAB BLOOD ORDERABLES Final Result Performing Organization Address City/[facility]/ZIP Co de Phone Number JAYESH [address] [place] [address] * IgM (08/09/2025 12:01 PM CDT) Immunoglobulin M 126 40 - 230 mg/dL Blood 08/09/2025 12:0 1 PM CDT 08/09/2025 4:37 PM CDT Vickie Ness MD LAB BLOOD ORDERABLES Final Result Performing Organization Address City/[facility]/ZIP Co de Phone Number WILEY[address] [place] [address] * IgG (08/09/2025 12:01 PM CDT) Pathologist [facility] Immunoglobulin G 833 700 - 1,600 mg/dL Blood 08/09/2025 12:0 1 PM CDT 08/09/2025 4:37 PM CDT Vickie Ness MD LAB BLOOD ORDERABLES Final Result Performing Organization Address [facility] de Phone Number [address] [address] * Beta 2 microglobulin, bld (08/09/2025 12:01 PM CDT) [facility] Beta 2 microglobulin, bld 2.00 1.00 - 2.50 mg/L Comment: Interpretive Data The Ronan Beta-2 microglobulin assay procedure was used. Results from different manufacturers or methods may not be comparable. Serial testing should be performed using the same method. Testing performed by: [address] [address] Blood 08/09/2025 12:0 1 PM CDT 08/09/2025 1:54 PM CDT Vickie Ness MD LAB BLOOD ORDERABLES Final Result Performing Organization Address [facility] de Phone Number [address] [address] * Comprehensive metabolic panel (08/09/2025 12:01 PM CDT) [facility] Sodium 141 135 - 145 mmol/L Comment:Testing performed by : [address] [address] Potassium, pl 4.1 3.3 - 4.9 mmol/L JAYESH Comment:Testing performed by : [address] [address] Chloride 103 97 - 110 mmol/L JAYESH Comment:Testing performed by : [address] [address] CO2 26 22 - 32 mmol/L JAYESH Comment:Testing performed by : [address] [address] Anion gap 12 2 - 15 mmol/L JAYESH Comment:Testing performed by : [address] [address] BUN 17 6 - 25 mg/dL JAYESH Comment:Testing performed by : [address], [place]., [address] Creatinine 0.80 0.60 - 1.10 mg/dL JAYESH Comment:Testing performed by : [address] [address] Glucose 99 70 - 199 mg/dL JAYESH Comment: Interpretive Data Fasting glucose >/= 126 mg/dl is diagnostic for diabetes. Fasting is defined as no caloric intake for at least 8 hours. Fasting glucose between 100 mg/dl to 125 mg/dl is diagnostic of prediabetes. In a patient with classic symptoms of hyperglycemia or hyperglycemic crisis, a random glucose >/= 200 mg/dl is diagnostic for diabetes. In the absence of unequivocal hyperglycemia, results should be confirmed by repeat testing. The classification and Diagnosis of Diabetes Diabetes Care 2021; 46: S19-S40. Current interpretive data was last revised 2022. Testing performed by: [address] [address] Calcium 9.5 8.5 - 10.3 mg/dL JAYESH Comment:Testing performed by : [address] [address] Bilirubin, total 0.3 0.1 - 1.2 mg/dL JAYESH Comment:Testing performed by : [address] [address] Protein, pl 6.8 6.5 - 8.5 g/dL JAYESH Comment:Testing performed by : [address] [address] Albumin 4.1 3.5 - 5.0 g/dL JAYESH Comment:Testing performed by : [address] [address] Alk phos 81 40 - 130 Units/L JAYESH Comment:Testing performed by : [facility], [address] [place] [address]., [address] ALT 18 7 - 45 Units/L JAYESH RICK Comment:Testing performed by : [address] [address] AST 25 10 - 45 Units/L JAYESH RICK Comment:Testing performed by : [facility], [address] [place] [address]., [address] Blood 08/09/2025 12:0 1 PM CDT 08/09/2025 12:04 PM CDT us Vickie Ness MD LAB BLOOD ORDERABLES Final Result JAYESH [address] [facility] Department [place] [address] * NM Myocardial Amyloidosis Imaging SPECT/CT (06/04/2025 1:44 PM CDT) Anatomical Region Laterality Modality N/A Nuclear Medicine 06/04/2025 2:00 PM CDT Impressions 06/04/2025 2:04 PM CDT This study demonstrates no abnormal myocardial uptake of Tc-99m pyrophosphate (Grade 0). See comments below. GENERAL COMMENTS CONCERNING THE INTERPRETATION OF TC-99M PYROPHOSPHATE IMAGING FOR DIAGNOSIS OF CARDIAC AMYLOIDOSIS A negative (Grade 0) Tc-99m pyrophosphate scan effectively excludes transthyretin-related cardiac amyloidosis (ATTR), but does not exclude light chain (AL) amyloidosis. If cardiac amyloidosis is suspected despite a negative scan, assessment of monoclonal proteins in serum or urine should be performed, if not already done, to assess for AL amyloidosis. A clearly positive (Grade 2 or 3) Tc-99m pyrophosphate scan can reflect either ATTR or AL amyloidosis, but has a high positive predictive value for ATTR amyloidosis if serum or urine monoclonal proteins are negative. A mildly positive (Grade 1) Tc-99m pyrophosphate scan can indicate either an early stage of ATTR or AL amyloidosis and further distinction requires assessment of monoclonal proteins in serum or urine. For further information, see the ASNC/AHA/ASE/EANM/HFSA/KRISTI/SCMR/SNMMI Expert Consensus Recommendations for Multimodality Imaging in Cardiac Amyloidosis (https://pubmed.ncbi.nlm.nih.gov/40503974/ and https://pubmed.ncbi.nlm.nih.gov/40837657/). Willy Dobbins and Gómez also participated in the interpretation of the study. Dictated by: Daylin Cheatham MD The radiology attending physician has personally reviewed this study, and had reviewed and/or edited this written report and agrees with it. Electronically signed by: Raymundo Rider M.D. Narrative 06/04/2025 2:04 PM CDT EXAMINATION: MYOCARDIAL AMYLOID SCINTIGRAPHY (PLANAR/SPECT-CT) DATE OF STUDY: 06/04/2025 RADIOPHARMACEUTICAL: 33.17 mCi Tc-99m pyrophosphate (PYP) i.v. HISTORY: 79-year-old woman with left ventricular hypertrophy COMPARISON: CT dated 06/05/2023 FINDINGS: Approximately 2.5 hours following administration of Tc-99m pyrophosphate, a planar image of the chest and upper abdomen was performed in the anterior projection, followed by SPECT/CT imaging of the chest. (The low-dose noncontrast CT images are used for attenuation correction and for fusion with emission SPECT images to allow for anatomical localization of SPECT findings and to better distinguish blood pool activity from myocardial uptake of the tracer.) On the planar image, tracer uptake within the region of the myocardium appears to be less than bone (grade 1). However, additional SPECT/CT images were subsequently obtained to better distinguish between blood pool activity and myocardial uptake, and to better detect small areas of abnormal uptake. SPECT/CT images show no abnormal tracer uptake in the myocardium. After review of SPECT/CT images, myocardial uptake is assessed to be 0 on a 0-3 scale. Incidental findings on the low-dose CT images: Coronary calcifications. Pacemaker leads. Old granulomatous disease as evidenced by calcified splenic and pulmonary nodules. Hiatal hernia. Degenerative changes in the spine. Procedure Note Raymundo Rider MD - 06/04/2025 EXAMINATION: MYOCARDIAL AMYLOID SCINTIGRAPHY (PLANAR/SPECT-CT) DATE OF STUDY: 06/04/2025 RADIOPHARMACEUTICAL: 33.17 mCi Tc-99m pyrophosphate (PYP) i.v. HISTORY: 79-year-old woman with left ventricular hypertrophy COMPARISON: CT dated 06/05/2023 FINDINGS: Approximately 2.5 hours following administration of Tc-99m pyrophosphate, a planar image of the chest and upper abdomen was performed in the anterior projection, followed by SPECT/CT imaging of the chest. (The low-dose noncontrast CT images are used for attenuation correction and for fusion with emission SPECT images to allow for anatomical localization of SPECT findings and to better distinguish blood pool activity from myocardial uptake of the tracer.) On the planar image, tracer uptake within the region of the myocardium appears to be less than bone (grade 1). However, additional SPECT/CT images were subsequently obtained to better distinguish between blood pool activity and myocardial uptake, and to better detect small areas of abnormal uptake. SPECT/CT images show no abnormal tracer uptake in the myocardium. After review of SPECT/CT images, myocardial uptake is assessed to be 0 on a 0-3 scale. Incidental findings on the low-dose CT images: Coronary calcifications. Pacemaker leads. Old granulomatous disease as evidenced by calcified splenic and pulmonary nodules. Hiatal hernia. Degenerative changes in the spine. IMPRESSION: This study demonstrates no abnormal myocardial uptake of Tc-99m pyrophosphate (Grade 0). See comments below. GENERAL COMMENTS CONCERNING THE INTERPRETATION OF TC-99M PYROPHOSPHATE IMAGING FOR DIAGNOSIS OF CARDIAC AMYLOIDOSIS A negative (Grade 0) Tc-99m pyrophosphate scan effectively excludes transthyretin-related cardiac amyloidosis (ATTR), but does not exclude light chain (AL) amyloidosis. If cardiac amyloidosis is suspected despite a negative scan, assessment of monoclonal proteins in serum or urine should be performed, if not already done, to assess for AL amyloidosis. A clearly positive (Grade 2 or 3) Tc-99m pyrophosphate scan can reflect either ATTR or AL amyloidosis, but has a high positive predictive value for ATTR amyloidosis if serum or urine monoclonal proteins are negative. A mildly positive (Grade 1) Tc-99m pyrophosphate scan can indicate either an early stage of ATTR or AL amyloidosis and further distinction requires assessment of monoclonal proteins in serum or urine. For further information, see the ASNC/AHA/ASE/EANM/HFSA/KRISTI/SCMR/SNMMI Expert Consensus Recommendations for Multimodality Imaging in Cardiac Amyloidosis (https://pubmed.ncbi.nlm.nih.gov/73544101/ and https://pubmed.ncbi.nlm.nih.gov/16000844/). Willy Dobbins and Gómez also participated in the interpretation of the study. Dictated by: Daylin Cheatham MD The radiology attending physician has personally reviewed this study, and had reviewed and/or edited this written report and agrees with it. Electronically signed by: Raymundo Rider M.D. us Anthony Campbell MD IMG [place] PROCEDURES Final Result from Last 3 Months Insurance MEDICARE ADVANTAGE MEDICARE ADVANTAGE [employer] MEDICARE ADVANTAGE Care Teams Internet Researcher Relationship Specialty Start Date End Date Noman Robles MD PCP - General 02/18/18 Gabe eCe MD [address] [address] Consulting Physician Rheumatology 08/17/24
--- OUTSIDE RECORDS SUMMARY | 2025-08-11 15:50 | XMS_ITS | Clinical Summary ---
Author Organization [facility] Address [address] [place] [address] Care Team Providers Care Front Office Supervisor Name Role Phone Noman Robles MD Primary Care Provider [phone] Source Comments [facility],non-owned Affiliates and Associated Physician Practices is amultiple site organization consisting of ambulatory clinics and hospital sitesin [place], [place], [place] and [place]. This disclosure is being madepursuant to the Care Everywhere program and may not contain all information available regarding this patient. 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 Gender Identity Not on file Sexual Orientation Not on file Plan of Treatment Health Maintenance Due Date Last Done Comments BONE DENSITY TESTING 1945 MEDICARE AWV 12 MONTHS 1945 DTAP/TDAP/TD VACCINES (1 - Tdap) 1963 PNEUMOCOCCAL VACCINE 50+ (1 of 1 - PCV) 1994 ZOSTER VACCINE (1 of 2) 1994 Respiratory Syncytial Virus (RSV) Vaccine Pt: or over 60 yrs (1 - 1-dose 75+ series) 2019 DEPRESSION SCREENING 11/18/2024 COVID-19 VACCINE ( - 2023-2 5 season) 2025 INFLUENZA VACCINE (#1) 2025 07/15/2018 HEPATITIS B VACCINE Aged Out No longe r eligible based on patient's age to complete this topic HIB VACCINE Aged Out No longer eligi ble based on patient's age to complete this topic HPV VACCINE Aged Out No longer eligi ble based on patient's age to complete this topic MENINGOCOCCAL (Group B) VACC INE SHARED DECISION-MAKING Aged Out No longer eligibl e based on patient's age to complete this topic MENINGOCOCCAL GROUPS A/C/Y/W VACCINE Aged Out No longer eligible b ased on patient's age to complete this topic Insurance MEDICARE [facility] [place] [id number] Care Teams Front Office Supervisor Relationship Specialty Start Date End Date Noman Robles MD PCP - General Internal Medicine 07/01/17
--- NOTE | 2025-08-11 16:18 | ECG_ITS ---
Test Date: 2025-08-11 16:21:31 Measurements Intervals [place] Rate: 84 P: 70 HI: 158 QRS: 13 QRSD: 75 T: 44 QT: 368 QTc: 437 Interpretive Statements SINUS RHYTHM SEPTAL MYOCARDIAL INFARCTION , PROBABLY OLD [40+ ms Q WAVE IN V1/V2] No previous ECG available for comparison Electronically Signed On 08-12-2025 06:40:02 CDT by Thong Ramso M.D.
[2025-08-11 16:19] VITALS: BP 114/82; PULSE 92; RESP 17; TEMP 36.6; O2SAT 96
[2025-08-11 16:25] VITALS: PULSE 86
[2025-08-11] MEDS: ASPIRIN 81 MG CHEWABLE TABLET 324 MG PO (16:31)
[2025-08-11 16:45] LABS: Hematocrit 40.7 % (37.0-47.0); Hemoglobin 12.9 g/dL (12.0-15.0); Immature Granulocyte Percent A 0.4 % (0-0.5); Lymphocytes Absolute Auto 0.52 K/mm3 (0.9-3.2); Mean Corpuscular HGB Conc 31.7 g/dl (32-36); Mean Corpuscular Hemoglobin 32.0 pg (26-34); Mean Corpuscular Volume 101.0 fl (80-100); Nucleated Red Blood Cells Absolute Auto 0.000 K/mm3 (0.0-0.012); Nucleated Red Blood Cells Perc 0.0 % (0.0-0.2); Platelet Count Result 345 k/mm3 (150-375); Red Blood Count 4.03 M/mm3 (4.2-5.4); White Blood Count 9.7 K/mm3 (4.5-10.0)
--- OUTSIDE RECORDS SUMMARY | 2025-08-11 16:50 | XMS_ITS | Encounter Summary ---
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
--- OUTSIDE RECORDS SUMMARY | 2025-08-11 16:50 | XMS_ITS | Clinical Summary ---
Author Organization [facility] Address [address] [place] [address] Care Team Providers Care Cuff Setter Overlock Name Role Phone Noman Robles MD Primary Care Provider Source Comments [facility],non-owned Affiliates and Associated Physician Practices is amultiple site organization consisting of ambulatory clinics and hospital sitesin [place], [place], [place] and [place]. This disclosure is being madepursuant to the Care Everywhere program and may not contain all information available regarding this patient. 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
--- OUTSIDE RECORDS SUMMARY | 2025-08-11 16:50 | XMS_ITS | Clinical Summary ---
Author Organization [facility] Address [address] [place] [address] Phone Care Team Providers Care Motor Checker Name Role Phone Noman Robles MD Primary Care Provider [phone] Gabe Cee MD Unavailable [phone] Allergies Active Allergy Reactions Criticality Noted Date Comments Oxycodone Other (See comments) Low 11/03/2024 Tkzhgij-Izs-Hck Reductase Inhibitors Fatigue Low 03/07/2023 atorvastatin Medications [...] Exertional chest pain 03/07/2023 Pulmonary HTN 03/07/2023 THMOAS (dyspnea on exertion) 03/07/2023 Chronic fatigue 03/07/2023 Primary hypertension 03/07/2023 Tobacco abuse 03/07/2023 Screening for AAA (abdominal aortic aneurysm) Mixed hyperlipidemia 03/07/2023 Monoclonal gammopathy 02/11/2019 Pain in shoulder 10/21/2015 Encounters Date Type Department Care Team Description 08/09/2025 1:38 PM CDT - 08/09/2025 11:59 PM CDT Hospital Encounter [facility] MOB 1 DIAG IMG [address] [place] [address] Wheezing Discharge Disposition: Discharge to home or self care 08/09/2025 1:00 PM CDT [facility] [address] [place] [phone] NP Monoclonal gammopathy (Primary Dx); Wheezing 08/09/2025 12:00 PM CDT Lab [facility] at [address] [address] Monoclonal gammopathy 06/04/2025 9:40 AM CDT - 06/04/2025 11:59 PM CDT Hospital Encounter [facility] Radiology [address] [place] [address] Discharge Disposition: Discharge to home or self care 06/04/2025 9:40 AM CDT - 06/04/2025 11:59 PM CDT Hospital Encounter [facility] Radiology [address] [place] [address] Left ventricular hypertrophy Discharge Disposition: Discharge to home or self care 06/04/2025 Results Follow-Up [facility] Cardiology [address] [facility] [address] [place] [phone] Gabby Randolph RN NM Myocardial Amyloidosis Imaging SPECT/CT 06/03/2025 Telephone [facility] Cardiology [address] [place] [address] [place] [phone] Anne Juan NP 06/02/2025 Telephone [facility] Cardiology [address] [facility] [address] [place] [phone] Anthony Campbell MD 05/27/2025 Telephone [facility] Cardiology [address] [facility] [address] [place] [phone] Anthony Campbell MD from Last 3 [...] on file 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 TW: KAY Report ID: [id number] Reading Location: [id number] Procedure Note Rimma Burrell MD - 08/10/2025 [...] Rimma Burrell M.D. TW: TW Report ID: [id number] Reading Location: [place] [address] SAXOPHONE TEACHER IMG XR PROCEDURES Kaylie l Result * Immunotyping, serum with interpretation (08/09/2025 12:01 PM CDT) Immunosubtraction Please see comment Comment: IGG LAMBDA PARAPROTEIN Reviewed and signed by Chandrika Ross MD, PhD 08/10/2025 Testing performed by: [facility], 1 [facility], [place]., [address] Blood 08/09/2025 12:0 1 PM CDT 08/09/2025 3:26 PM CDT Vickie Ness MD LAB BLOOD ORDERABLES Final Result Performing Organization Address [facility] de Phone Number [place] [id number] [facility] [place] [place] [address] * eGFR (08/09/2025 12:01 PM CDT) eGFR [...] was last reviewed 2021. Testing performed by: [address] [address] Blood 08/09/2025 12:0 1 PM CDT 08/09/2025 12:04 PM CDT Vickie Ness MD LAB BLOOD ORDERABLES Final Result Performing Organization Address [facility] de Phone Number [facility] [address] [facility] Department [place] [address] * (ABNORMAL) Differential, auto (08/09/2025 12:01 PM CDT) Neutrophil abs 11.28(H) 1.50 - 6.50 K/cumm Comment:Testing performed by : [address] [address] Imm gran abs 0.07 0.00 - 0.10 K/cumm JAYESH Comment:Testing performed by : [address] [address] Lymphocyte abs 0.62(L) 0.80 - 3.30 K/cumm JAYESH Comment:Testing performed by : [address], [place]., [address] Monocyte abs 0.44 0.20 - 0.80 K/cumm JAYESH Comment:Testing performed by : [address] [address] Eosinophil abs 0.02 0.00 - 0.50 K/cumm JAYESH Comment:Testing performed by : [address], [place]., [address] Basophil abs 0.03 0.00 - 0.10 K/cumm JAYESH Comment:Testing performed by : [address] [address] Neutrophil pct 90.5 % JAYESH Comment: Interpretive Data Percent cell count reference ranges are not reported, since discordance with absolute values may lead to misinterpretation of CBC data. Current Interpretive Data was last revised on 2018. Testing performed by: [address] [address] Imm gran pct 0.6 % JAYESH Comment: Interpretive Data Percent cell count reference ranges are not reported, since discordance with absolute values may lead to misinterpretation of CBC data. Current Interpretive Data was last revised on 2018. Testing performed by: [address] [address] Lymphocyte pct 5.0 % JAYESH Comment: Interpretive Data Percent cell count reference ranges are not reported, since discordance with absolute values may lead to misinterpretation of CBC data. Current Interpretive Data was last revised on 2018. Testing performed by: [address] [address] Monocyte pct 3.5 % CERNAIN Comment: Interpretive Data Percent cell count reference ranges are not reported, since discordance with absolute values may lead to misinterpretation of CBC data. Current Interpretive Data was last revised on 2018. Testing performed by: [address] [address] Eosinophil pct 0.2 % JAYESH RICK Comment: Interpretive Data Percent cell count reference ranges are not reported, since discordance with absolute values may lead to misinterpretation of CBC data. Current Interpretive Data was last revised on 2018. Testing performed by: [facility], [address] [place] [address]., [address] Basophil pct 0.2 % JAYESH RICK Comment: Interpretive Data Percent cell count reference ranges are not reported, since discordance with absolute values may lead to misinterpretation of CBC data. Current Interpretive Data was last revised on 2018. Testing performed by: [facility], [address] [place] [address]., [address] Blood 08/09/2025 12:0 1 PM CDT 08/09/2025 12:04 PM CDT Vickie Ness MD LAB BLOOD ORDERABLES Final Result JAYESH [address] [facility] Department [place] [address] * Immunoglobulin free light chains (08/09/2025 12:01 PM CDT) [place]/Lambda ratio BJ 1.04 0.26 - 1.65 Comment: Interpretive Data The Binding Site FreeLite assay procedure was used. Results from different manufacturers or methods may not be comparable. Serial testing should be performed using the same methods and instrumentation. Current Interpretive Data was last revised on 2024. Testing performed by: [facility], 1 [place]., [address] [place] free light chain BJH 1.71 0.33 - 1.94 mg/dL JAYESH RICK Comment: Interpretive Data The Binding Site FreeLite assay procedure was used. Results from different manufacturers or methods may not be comparable. Serial testing should be performed using the same methods and instrumentation. Current Interpretive Data was last revised on 2024. Testing performed by: [facility], [address] [place]., [address] Lambda free light chain BJH 1.65 0.57 - 2.63 mg/dL JAYESH RICK Comment: Interpretive Data The Binding Site FreeLite assay procedure was used. Results from different manufacturers or methods may not be comparable. Serial testing should be performed using the same methods and instrumentation. Current Interpretive Data was last revised on 2024. Testing performed by: [facility], [address] [place]., [address] Blood 08/09/2025 12:0 1 PM CDT 08/09/2025 3:26 PM CDT us Vickie Ness MD LAB BLOOD ORDERABLES Final Result JAYESH RICK [facility]6 [facility] Department [place] [address] * (ABNORMAL) CBC with auto differential (08/09/2025 12:01 PM CDT) WBC 12.46(H) 3.80 - 9.90 K/cumm Comment:Testing performed by : [address] [address] Hgb 13.1 11.9 - 15.5 g/dL JAYESH RICK Comment:Testing performed by : [address] [address] Hct 40.5 35.6 - 45.5 % JAYESH RICK Comment:Testing performed by : [address] [address] Plt 364 150 - 400 K/cumm JAYESH RCIK Comment:Testing performed by : [address] [address] MPV 9.5 9.1 - 12.3 fL JAYESH RICK Comment:Testing performed by : [address] [address] RBC 4.06 3.90 - 5.20 M/cumm JAYESH RICK Comment:Testing performed by : [address] [address] MCV 99.8(H) 81.3 - 96.4 fL JAYESH RICK Comment:Testing performed by : [address] [address] MCH 32.3 27.1 - 33.3 pg JAYESH RICK Comment:Testing performed by : [address] [address] MCHC 32.3 32.3 - 35.7 g/dL JAYESH RICK Comment:Testing performed by : [address] [address] RDW CV 14.1 11.1 - 14.9 % JAYESH Comment:Testing performed by : [address] [address] RDW SD 50.4(H) 35.7 - 48.1 fL JAYESH Comment:Testing performed by : [address] [address] NRBC abs 0.00 0.00 - 0.01 K/cumm JAYESH Comment:Testing performed by : [address] [address] ANC Prelim 11.28(H) 1.50 - 6.50 K/cumm JAYESH Comment: Interpretive Data The rapid ANC is a preliminary automated count and may vary from the final ANC (Neut Abs) reported in the WBC differential that follows. Current interpretive data was last revised 2025. Testing performed by: [address] [address] Blood 08/09/2025 12:0 1 PM CDT 08/09/2025 12:04 PM CDT us Vickie Ness MD LAB BLOOD ORDERABLES Final Result JAYESH [address] [facility] Department [place] [address] * (ABNORMAL) Protein electrophoresis with reflex, serum with interpretation (08/09/2025 12:01 PM CDT) Protein, sr 6.8 6.2 - 8.2 g/dL Comment:Testing performed by : [facility], 1 [facility], [address] Albumin 4.2 3.2 - 5.0 g/dL JAYESH Comment:Testing performed by : [facility], 1 [facility], [address] Alpha-1 globulin 0.3 0.2 - 0.4 g/dL JAYESH Comment:Testing performed by : [facility], 1 [facility], [address] Alpha-2 globulin 0.7 0.5 - 1.0 g/dL JAYESH Comment:Testing performed by : [facility], [address] [place] [address], [address] Beta-1 globulin 0.4 0.3 - 0.6 g/dL JAYESH Comment:Testing performed by : [facility], [address] [place] [address], [address] Beta-2 globulin 0.4 0.2 - 0.6 g/dL JAYESH Comment:Testing performed by : [facility], [address] [place] [address], [address] Gamma globulin 0.8 0.5 - 1.7 g/dL JAYESH Comment:Testing performed by : [facility], [address] [place] [address], [address] Rstr Pk Gamma 0.2(H) 0.0 - 0.0 g/dL JAYESH Comment:Testing performed by : [facility], [address] [place] [address], [address] SPEP interp Please see comment JAYESH Comment: Abnormal restricted peak in Gamma region See immunotyping for further information Reviewed and signed by Chandrika Ross MD, PhD 08/10/2025 Testing performed by: [facility], [address] [place] [address], [address] Blood 08/09/2025 12:0 1 PM CDT 08/09/2025 3:26 PM CDT Vickie Ness MD LAB BLOOD ORDERABLES Final Result Performing Organization Address [facility]/ZIP Co de Phone Number JAYESH [address] [place] [address] * Lactate dehydrogenase (LD) (08/09/2025 12:01 PM CDT) Lactate dehydrogenase (LDH) 249 100 - 250 Units/L Comment:Testing performed by : [facility], [address] [place] [address], [address] Blood 08/09/2025 12:0 1 PM CDT 08/09/2025 12:04 PM CDT Vickie Ness MD LAB BLOOD ORDERABLES Final Result Performing Organization Address [facility] Co de Phone Number JAYESH [address] [place] [address] * IgA (08/09/2025 12:01 PM CDT) Immunoglobulin A 132 70 - 400 mg/dL Blood 08/09/2025 12:0 1 PM CDT 08/09/2025 4:37 PM CDT Vickie Ness MD LAB BLOOD ORDERABLES Final Result Performing Organization Address [facility]/ZIP Co de Phone Number JAYESH [address] [place] [address] * IgM (08/09/2025 12:01 PM CDT) Immunoglobulin M 126 40 - 230 mg/dL Blood 08/09/2025 12:0 1 PM CDT 08/09/2025 4:37 PM CDT Vickie Ness MD LAB BLOOD ORDERABLES Final Result Performing Organization Address [facility]/ZIP Co de Phone Number WILEY[address] [place] [address] * IgG (08/09/2025 12:01 PM CDT) Pathologist [facility] Immunoglobulin G 833 700 - 1,600 mg/dL Blood 08/09/2025 12:0 1 PM CDT 08/09/2025 4:37 PM CDT Vickie Ness MD LAB BLOOD ORDERABLES Final Result Performing Organization Address [facility] de Phone Number [address] [address] * Beta 2 microglobulin, bld (08/09/2025 12:01 PM CDT) [facility] Beta 2 microglobulin, bld 2.00 1.00 - 2.50 mg/L Comment: Interpretive Data The Ronan Beta-2 microglobulin assay procedure was used. Results from different manufacturers or methods may not be comparable. Serial testing should be performed using the same method. Testing performed by: [address] [address] Blood 08/09/2025 12:0 1 PM CDT 08/09/2025 1:54 PM CDT Vickie Ness MD LAB BLOOD ORDERABLES Final Result Performing Organization Address [facility] de Phone Number [address] [address] * Comprehensive metabolic panel (08/09/2025 12:01 PM CDT) [facility] Sodium 141 135 - 145 mmol/L Comment:Testing performed by : [address] [address] Potassium, pl 4.1 3.3 - 4.9 mmol/L JAYESH Comment:Testing performed by : [address] [address] Chloride 103 97 - 110 mmol/L JAYESH Comment:Testing performed by : [address] [address] CO2 26 22 - 32 mmol/L JAYESH Comment:Testing performed by : [address] [address] Anion gap 12 2 - 15 mmol/L JAYESH Comment:Testing performed by : [address] [address] BUN 17 6 - 25 mg/dL JAYESH Comment:Testing performed by : [address], [place]., [address] Creatinine 0.80 0.60 - 1.10 mg/dL JAYESH Comment:Testing performed by : [address] [address] Glucose 99 70 - 199 mg/dL JAYESH [...] was last revised 2022. Testing performed by: [address] [address] Calcium 9.5 8.5 - 10.3 mg/dL JAYESH Comment:Testing performed by : [address] [address] Bilirubin, total 0.3 0.1 - 1.2 mg/dL JAYESH Comment:Testing performed by : [address] [address] Protein, pl 6.8 6.5 - 8.5 g/dL JAYESH Comment:Testing performed by : [address] [address] Albumin 4.1 3.5 - 5.0 g/dL JAYESH Comment:Testing performed by : [address] [address] Alk phos 81 40 - 130 Units/L JAYESH Comment:Testing performed by : [facility], [address] [place] [address]., [address] ALT 18 7 - 45 Units/L JAYESH RICK Comment:Testing performed by : [address] [address] AST 25 10 - 45 Units/L JAYESH RICK Comment:Testing performed by : [facility], [address] [place] [address]., [address] Blood 08/09/2025 12:0 1 PM CDT 08/09/2025 12:04 PM CDT us Vickie Ness MD LAB BLOOD ORDERABLES Final Result JAYESH [address] [facility] Department [place] [address] * NM Myocardial Amyloidosis Imaging SPECT/CT (06/04/2025 [...] Recommendations for Multimodality Imaging in Cardiac Amyloidosis (https://pubmed.ncbi.nlm.nih.gov/72136970/ and https://pubmed.ncbi.nlm.nih.gov/16416601/). Willy Dobbins and Gómez also participated in [...] Recommendations for Multimodality Imaging in Cardiac Amyloidosis (https://pubmed.ncbi.nlm.nih.gov/44184979/ and https://pubmed.ncbi.nlm.nih.gov/87036981/). Willy Dobbins and Gómez also participated in the interpretation of the study. Dictated by: Daylin Cheatham MD The radiology attending physician has personally reviewed this study, and had reviewed and/or edited this written report and agrees with it. Electronically signed by: Raymundo Rider M.D. us Anthony Campbell MD IMG NM PROCEDURES Final Result from Last 3 Months Insurance MEDICARE ADVANTAGE [place] [address] [employer] MEDICARE ADVANTAGE Care Teams Motor Checker Relationship Specialty Start Date End Date Noman Robles MD PCP - General 02/18/18 Gabe Cee MD [address] [address] Consulting Physician Rheumatology 08/17/24
[2025-08-11 16:54] LABS: INR 0.9; Prothrombin Time 12.6 Seconds (11.1-14.7)
[2025-08-11 16:55] LABS: Partial Thromboplastin Time 28.6 Seconds (22.3-36.8)
[2025-08-11 17:09] LABS: Alanine Aminotransferase 22 U/L (6-35); Albumin Level 4.1 g/dL (3.5-5.1); Alkaline Phosphatase 78 U/L (38-126); Anion Gap 6 mmol/L (4-12); Aspartate Amino Transferase 34 U/L (14-36); Bilirubin,Total 0.3 mg/dL (0.2-1.3); Blood Urea Nitrogen 21 mg/dL (7-17); Calcium 9.4 mg/dL (8.4-10.2); Carbon Dioxide 29 mmol/L (22-30); Chloride 101 mmol/L (98-107); Estimated Glomerular Filt Rate > 60; Glucose 93 mg/dL (65-110); Lipase 96 U/L (23-300); Potassium 4.4 mmol/L (3.4-5.0); Sodium 136 mmol/L (137-145); Total Protein 6.7 g/dL (6.3-8.2)
[2025-08-11 17:20] LABS: Troponin I < 0.012 ng/mL (0.000-0.034)
--- NOTE | 2025-08-11 18:46 | ED.SOB ---
HPI - SOB/Dyspnea General Chief Complaint: Shortness of Breath/Dyspnea Stated Complaint: lighjt headed, sob Time Seen by Provider: 08/11/25 16:35 Source: patient Mode of arrival: ambulatory Limitations: no limitations History of Present Illness HPI Narrative: 80-year-old small to history of aortic valve regurgitation here with a complaint of dizziness more when bathing go ahead for was on for past weeks once a complains of shortness of breath at times. She denies any cough. No history of fever or chills Onset (ago): week(s) (2) Timing: intermittent Exacerbating factors: movement Associated symptoms: denies other symptoms Related Data Home Medications ?Medication ?Instructions ?Recorded ?Confirmed ?Last Taken ?Type ascorbic acid (vitamin C) 125 mg 125 mg PO DAILY 04/10/23 04/11/23 04/11/23 08:30 History chewable tablet cholecalciferol (vitamin D3) 125 125 mcg PO DAILY 04/10/23 04/11/23 04/11/23 08:30 History mcg (5,000 unit) capsule diphenhydramine HCl 50 mg/30 mL 50 mg PO HS 04/10/23 04/10/23 04/10/23 History oral liquid (ZzzQuil) ezetimibe 10 mg tablet 10 mg PO DAILY 04/10/23 04/11/23 04/11/23 08:30 History folic acid 1 mg tablet 1 mg PO DAILY 04/10/23 04/11/23 04/11/23 08:30 History garlic 400 mg tablet,delayed 400 mg PO DAILY 04/10/23 04/11/23 04/11/23 08:30 History release infliximab-abda 100 mg intravenous 100 mg IV DIRECTED 04/10/23 04/10/23 Unknown History solution (Renflexis) lactobacillus combination no.8 3 3 cell PO DAILY 04/10/23 04/11/23 04/11/23 08:30 History billion cell capsule levothyroxine 50 mcg tablet 50 mcg PO DAILY 04/10/23 04/11/23 04/11/23 08:30 History methotrexate sodium 2.5 mg tablet See Rx Instructions .Route .COMPLEX 04/10/23 04/11/23 04/08/23 History multivitamin-ferrous 1 tablet PO DAILY 04/10/23 04/11/23 04/11/23 08:30 History fumarate-folic acid 18 mg-400 mcg tablet (Centrum Women) nifedipine 30 mg tablet,extended 30 mg PO DAILY 04/10/23 04/11/23 04/11/23 08:30 History release prednisone 5 mg tablet 5 mg PO BID 04/10/23 04/11/23 04/11/23 08:30 History psyllium 1 packet PO TID 04/10/23 04/11/23 04/11/23 08:30 History tramadol 50 mg tablet 50 mg PO BID 04/10/23 04/11/23 04/11/23 08:30 History venlafaxine 37.5 mg tablet 37.5 mg PO DAILY 04/10/23 04/11/23 04/11/23 08:30 History vitamin B complex (B 1 tablet PO DAILY 04/10/23 04/11/23 04/11/23 08:30 History Complex-Vitamin B12 tablet) Allergies Allergy/AdvReac Type Severity Reaction Status Date / Time No Known Allergies Allergy Unknown Verified 08/11/25 16:16 Review of Systems Review of Systems: All systems reviewed & are unremarkable except as noted in HPI and below Constitutional: Constitutional: Reports no additional constitutional complaints Eyes: Eyes: Reports no additional eye complaints ENT: Reports system reviewed and no additional complaints, except as documented Cardiovascular: Cardiovascular: Reports no additional cardiovascular complaints Respiratory: Respiratory: Reports as per HPI Gastrointestinal: Gastrointestinal: Reports no additional gastrointestinal complaints Musculoskeletal: Musculoskeletal: Reports no additional musculoskeletal complaints Neurologic: Reports system reviewed and no additional complaints, except as documented PMF Past Medical History Medical History Mixed hyperlipidemia Aortic regurgitation Aortic stenosis Hypertension Social History Social History Smoking status: Current every day smoker Tobacco type: e-cigarettes/vaping Substance use type: does not use Living arrangements: alone Spiritual care concerns: No Exam Narrative: GENERAL: Well-appearing, well-nourished, and in no acute distress. HEAD: Normocephalic, atraumatic. EYES: PERRLA and EOMI. ENT: Nares clear, no rhinorrhea or epistaxis. Mucous membranes moist. NECK: Supple. CHEST: Clear to auscultation. No respiratory distress. HEART: Regular rate and rhythm. No murmur heard. Normal peripheral pulses. ABDOMEN: Soft, nontender, nondistended, normal active bowel sounds. EXTREMITIES: Normal range of motion. No edema. SKIN: Warm, dry, no rash. NEURO: No focal deficits. Alert and oriented x3. PSYCH: Normal mood and affect. Course Course Emergency Course: Patient comfortably resting her SpO2 is 98-100% on room air I did inform her about the lab work, CT and chest x-ray findings. 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 ,to [place] could be the cause of Dizzziness or SOB Vital Signs Vital signs: Vital Signs Temperature 36.6 C 08/11/25 16:19 Pulse Rate 92 08/11/25 16:19 Respiratory Rate 17 08/11/25 16:19 Blood Pressure 114/82 08/11/25 16:19 Pulse Oximetry 96 08/11/25 16:19 Oxygen Delivery Room Air 08/11/25 16:19 Temperature 36.6 C 08/11/25 16:19 Pulse Rate 86 08/11/25 16:25 Respiratory Rate 17 08/11/25 16:19 Blood Pressure 114/82 08/11/25 16:19 Pulse Oximetry 96 08/11/25 16:19 Oxygen Delivery Room Air 08/11/25 16:39 MDM - SOB/Dyspnea Differential Diagnosis Differential diagnosis: Likely acute exacerbation of chronic obstructive airways disease, congestive heart failure and community acquired pneumonia Medical Records Attestation: I reviewed the patient's medical records. Lab Data Attestation: I reviewed the patient's lab results. 08/11/25 16:37 08/11/25 16:37 Labs: Lab Results 08/11/25 Range/Units 16:37 WBC 9.7 (4.5-10.0) K/mm3 RBC 4.03 L (4.2-5.4) M/mm3 Hgb 12.9 (12.0-15.0) g/dL Hct 40.7 (37.0-47.0) % MCV 101.0 H (80-100) fl MCH 32.0 (26-34) pg MCHC 31.7 L (32-36) g/dl RDW 13.7 (11.5-14.5) % Plt Count 345 (150-375) k/mm3 MPV 9.3 (7.4-10.4) fl Immature Gran % (Auto) 0.4 (0-0.5) % Neut % (Auto) 88.8 H (45.5-73.1) % Lymph % (Auto) 5.4 L (18.3-44.2) % [place] % (Auto) 5.1 (2.6-8.5) % Eos % (Auto) 0.1 (0-4.4) % Baso % (Auto) 0.2 (0.2-1.2) % Lymph # (Auto) 0.52 L (0.9-3.2) K/mm3 [place] # (Auto) 0.5 (0.1-0.6) K/mm3 Eos # (Auto) 0.0 (0-0.3) K/mm3 Baso # (Auto) 0.0 (0.0-0.1) K/mm3 Abs Immat Gran (auto) 0.04 H (0.00-0.031) K/mm3 Absolute Neuts (auto) 8.6 H (1.3-6.7) K/mm3 Absolute Nucleated RBC 0.000 (0.0-0.012) K/mm3 Nucleated RBC % 0.0 (0.0-0.2) % PT 12.6 (11.1-14.7) Seconds INR 0.9 APTT 28.6 (22.3-36.8) Seconds Sodium 136 L (137-145) mmol/L Potassium 4.4 (3.4-5.0) mmol/L Chloride 101 (98-107) mmol/L Carbon Dioxide 29 (22-30) mmol/L Anion Gap 6 (4-12) mmol/L BUN 21 H (7-17) mg/dL Creatinine 0.80 (0.7-1.0) mg/dL Estim Creat Clear Calc Not Reportable Estimated GFR > 60 (59 - ) Glucose 93 (65-110) mg/dL Calcium 9.4 (8.4-10.2) mg/dL Total Bilirubin 0.3 (0.2-1.3) mg/dL AST 34 (14-36) U/L ALT 22 (6-35) U/L Alkaline Phosphatase 78 (38-126) U/L Troponin I < 0.012 (0.000-0.034) ng/mL Total Protein 6.7 (6.3-8.2) g/dL Albumin 4.1 (3.5-5.1) g/dL Lipase 96 (23-300) U/L Imaging Data Radiologist's impression: ITS Impressions Chest X-Ray 08/11/25 17:08 IMPRESSION: 1: NO ACUTE CARDIOPULMONARY DISEASE. Head/Neck CTA 08/11/25 18:06 IMPRESSION: 1: No acute intracranial abnormality. 2: Chronic left lacunar infarction. 3: No significant vascular abnormality of the head or neck. ECG Data EKG #1: ECG completion date: 08/11/25 ECG completion time: 16:21 EKG Interpretation: normal rate (84), no ectopy, no ST changes, normal QRS and no acute changes Discharge Plan Discharge Clinical Impression: Dizziness Patient Disposition: Home Condition: Stable Instructions: Dizziness (ED) Additional Instructions: continue home medication, follow with your doctor Patient Language: Ukrainian Prescriptions: No Action cholecalciferol (vitamin D3) 125 mcg (5,000 unit) Capsule 125 mcg PO DAILY ascorbic acid (vitamin C) 125 mg Tablet,Chewable 125 mg PO DAILY prednisone 5 mg tablet 5 mg PO BID nifedipine 30 mg tablet extended release 30 mg PO DAILY tramadol 50 mg tablet 50 mg PO BID methotrexate sodium 2.5 mg tablet See Rx Instructions .ROUTE .COMPLEX Rx Instructions: 4 of 2.5 mg tabs weekly on mondays levothyroxine 50 mcg tablet 50 mcg PO DAILY venlafaxine 37.5 mg tablet 37.5 mg PO DAILY vitamin B complex [B Complex-Vitamin B12] Tablet 1 tablet PO DAILY folic acid 1 mg Tablet 1 mg PO DAILY ezetimibe 10 mg tablet 10 mg PO DAILY Renflexis 100 mg Recon Soln 100 mg IV DIRECTED Rx Instructions: bi monthly injection garlic 400 mg Tablet,Delayed Release (Dr/Ec) 400 mg PO DAILY psyllium Packet 1 packet PO TID Rx Instructions: mix into at least 8 oz of water or juice before administering Centrum Women 18-400 mg-mcg Tablet 1 tablet PO DAILY ZzzQuil 50 mg/30 mL Liquid 50 mg PO HS lactobacillus combination no.8 3 billion cell Capsule 3 cell PO DAILY Follow-up/Referrals: Travis,MD Noman [Primary Care Provider] Time of Disposition: 18:55
[2025-08-11 19:11] VITALS: BP 118/67; PULSE 88; RESP 17; O2SAT 94
== END 2025-08-11 19:13 | disposition home or self-care (01) ==
PROVIDERS: Emergency Provider Family Medicine; PCP Internal Medicine
DX: R42 Dizziness and giddiness (principal); I35.2 Nonrheumatic aortic (valve) stenosis with insufficiency; I10 Essential (primary) hypertension; E78.2 Mixed hyperlipidemia; F17.290 Nicotine dependence, other tobacco product, uncomplicated; Z79.899 Other long term (current) drug therapy; R94.31 Abnormal electrocardiogram [ECG] [EKG]
CPT/HCPCS: 36415; 70496; 70498; 71046; 80053; 83690; 84484; 85025; 85610; 85730; 93005; 99284; A9270; Q9967

== ENCOUNTER 2025-10-11 00:21 | Day surgery (SDC) | payer MEDICARE, SELFPAY ==
[2025-09-23 09:51] VITALS: BMI 26.2
--- OUTSIDE RECORDS SUMMARY | 2025-10-11 00:23 | XMS_ITS | Clinical Summary ---
Author Organization [facility] Address [address] [place] [address] Care Team Providers Care Microscopist Name Role Phone Noman Robles MD Primary Care Provider Source Comments [facility],non-owned Affiliates and Associated Physician Practices is amultiple site organization consisting of ambulatory clinics and hospital sitesin [place], [place], [place] and [place]. This disclosure is being madepursuant to the Care Everywhere program and may not contain all information available regarding this patient. 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
[2025-10-11 07:50] VITALS: BP 147/69; PULSE 89; RESP 20; TEMP 36.2; O2SAT 96; BMI 26.8
[2025-10-11] MEDS: LACTATED RINGERS 1,000 ML 150 ML IV CONT (08:03)
--- NOTE | 2025-10-11 08:23 | WPDANESEPPF ---
Anes - Initial Pre Proc Eval Procedure: Operation Date: 10/11/25 08:45 Proposed Procedures p Esophagogastroduodenoscopy EGD - Deyvi Louis MD Date/Time: 10/11/25 08:23 Surgeon: Deyvi Louis MD Pre Op Diagnosis: Other dysphagia Patient Data Age: 80 Gender: F Height: 1.42 m Weight: 54.3 kg Last Vital Signs Temp 97.2 F L 10/11/25 07:50 Pulse 89 10/11/25 07:50 Resp 20 10/11/25 07:50 BP 147/69 H 10/11/25 07:50 Pulse Ox 96 10/11/25 07:50 O2 Del Method Room Air 10/11/25 07:50 Allergies Allergy/AdvReac Type Severity Reaction Status Date / Time No Known Allergies Allergy Unknown Verified 10/11/25 07:48 Home Medications ?Medication ?Instructions ?Recorded ?Confirmed ?Type ascorbic acid (vitamin C) 125 mg 125 mg PO DAILY 04/10/23 10/11/25 History chewable tablet cholecalciferol (vitamin D3) 125 125 mcg PO DAILY 04/10/23 10/11/25 History mcg (5,000 unit) capsule diphenhydramine HCl 50 mg/30 mL 50 mg PO HS 04/10/23 10/11/25 History oral liquid (ZzzQuil) ezetimibe 10 mg tablet 10 mg PO DAILY 04/10/23 10/11/25 History folic acid 1 mg tablet 1 mg PO DAILY 04/10/23 10/11/25 History garlic 400 mg tablet,delayed 400 mg PO DAILY 04/10/23 10/11/25 History release lactobacillus combination no.8 3 3 cell PO DAILY 04/10/23 10/11/25 History billion cell capsule levothyroxine 50 mcg tablet 50 mcg PO DAILY 04/10/23 10/11/25 History methotrexate sodium 2.5 mg tablet See Rx Instructions .Route .COMPLEX 04/10/23 10/11/25 History multivitamin-ferrous 1 tablet PO DAILY 04/10/23 10/11/25 History fumarate-folic acid 18 mg-400 mcg tablet (Centrum Women) nifedipine 30 mg tablet,extended 30 mg PO DAILY 04/10/23 10/11/25 History release prednisone 5 mg tablet 5 mg PO BID 04/10/23 10/11/25 History psyllium 1 packet PO TID 04/10/23 10/11/25 History tramadol 50 mg tablet 50 mg PO BID 04/10/23 10/11/25 History venlafaxine 37.5 mg tablet 75 mg PO DAILY 04/10/23 10/11/25 History vitamin B complex (B 1 tablet PO DAILY 04/10/23 10/11/25 History Complex-Vitamin B12 tablet) calcium 600 mg-D3 800 unit-mag11 1 tablet PO DAILY 09/23/25 10/11/25 History 50 rl-pmlx-hbskgu-jaimee-s.borat tablet (Caltrate 600-D Plus Minerals) Patient hx anesthesia problems: none Family hx anesthesia problems: none Results Review: All pre-operative results and documents have been reviewed as part of the pre-operative evaluation. [facility] Past Medical History Medical History Mixed hyperlipidemia Aortic regurgitation Aortic stenosis Hypertension Social History Social History Smoking status: Current every day smoker Tobacco type: e-cigarettes/vaping Substance use type: does not use Living arrangements: alone Spiritual care concerns: No Anes - Eval Final PreProcedure Day of Procedure 10/11/25 08:23 Lungs: normal air movement Airway: Mallampati scale class II Neurological: alert and oriented Last oral intake: >/= 8 hours ASA classification: III Emergent: no Anesthetic plan: proceed Anesthesia type and monitoring: general GIVS and standard monitoring Results Review: All pre-operative results and documents have been reviewed as part of the pre-operative evaluation. Dysphagia/gerd, pt w mod by ECHO w nml LVEF, HTN, hypothyroidism, activity limited by back/ortho pain. Informed Consent: The patient's anesthetic plan and its attendant risks and benefits were discussed with the patient/family/POA. Questions were solicited and answers provided to the satisfaction of the patient/family/POA.
--- NOTE | 2025-10-11 08:24 | PM.HPGS ---
History of Present Illness History of Present Illness Consent: Risks, benefits, and alternatives have been discussed and questions answered. Patient agrees to proceed with procedure. Chief complaint: Other dysphagia Narrative: Arabella Vasquez is a 80 year old female here for first EGD, h/o food getting stuck at epigastric area. Review of Systems Review of Systems: All systems reviewed & are unremarkable except as noted in HPI and below PMFSH Past Medical History Medical History (Updated 10/11/25 @ 08:25 by Deyvi Louis MD) Dysphagia Mixed hyperlipidemia Aortic regurgitation Aortic stenosis Hypertension Social History Social History Smoking status: Current every day smoker Tobacco type: e-cigarettes/vaping Substance use type: does not use Living arrangements: alone Spiritual care concerns: No Meds Home Medications and Allergies Home Medications ?Medication ?Instructions ?Recorded ?Confirmed ?Type ascorbic acid (vitamin C) 125 mg 125 mg PO DAILY 04/10/23 10/11/25 History chewable tablet cholecalciferol (vitamin D3) 125 125 mcg PO DAILY 04/10/23 10/11/25 History mcg (5,000 unit) capsule diphenhydramine HCl 50 mg/30 mL 50 mg PO HS 04/10/23 10/11/25 History oral liquid (ZzzQuil) ezetimibe 10 mg tablet 10 mg PO DAILY 04/10/23 10/11/25 History folic acid 1 mg tablet 1 mg PO DAILY 04/10/23 10/11/25 History garlic 400 mg tablet,delayed 400 mg PO DAILY 04/10/23 10/11/25 History release lactobacillus combination no.8 3 3 cell PO DAILY 04/10/23 10/11/25 History billion cell capsule levothyroxine 50 mcg tablet 50 mcg PO DAILY 04/10/23 10/11/25 History methotrexate sodium 2.5 mg tablet See Rx Instructions .Route .COMPLEX 04/10/23 10/11/25 History multivitamin-ferrous 1 tablet PO DAILY 04/10/23 10/11/25 History fumarate-folic acid 18 mg-400 mcg tablet (Centrum Women) nifedipine 30 mg tablet,extended 30 mg PO DAILY 04/10/23 10/11/25 History release prednisone 5 mg tablet 5 mg PO BID 04/10/23 10/11/25 History psyllium 1 packet PO TID 04/10/23 10/11/25 History tramadol 50 mg tablet 50 mg PO BID 04/10/23 10/11/25 History venlafaxine 37.5 mg tablet 75 mg PO DAILY 04/10/23 10/11/25 History vitamin B complex (B 1 tablet PO DAILY 04/10/23 10/11/25 History Complex-Vitamin B12 tablet) calcium 600 mg-D3 800 unit-mag11 1 tablet PO DAILY 09/23/25 10/11/25 History 50 fz-ascp-gfpytv-jaimee-s.borat tablet (Caltrate 600-D Plus Minerals) Allergies Allergy/AdvReac Type Severity Reaction Status Date / Time No Known Allergies Allergy Unknown Verified 10/11/25 07:48 Vital Signs Vital Signs - 24 hr 10/11/25 07:50 Temperature 97.2 F L Pulse Rate 89 Respiratory Rate 20 Blood Pressure 147/69 H Pulse Oximetry 96 Oxygen Delivery Room Air Exam Const: General: comfortable and no acute distress HENMT: Face/Nose/Sinus: Normal nares present Eyes: General: appearance normal, both eyes and all related structures Neck: Neck: no JVD Resp: Auscultation: clear to auscultation bilaterally Cardio: Rate: regular rate Rhythm: regular rhythm GI: Inspection: non-distended GI Palp: Yes Soft to palpation Skin: General skin exam: normal color Extrem: General: normal to inspection Psych: Mental Status: mental status grossly normal Assessment and Plan Assessment and plan (1) Dysphagia: Code(s): R13.10 - Dysphagia, unspecified Status: Acute Assessment and Plan: egd
[2025-10-11 08:33] VITALS: BP 98/49; PULSE 80; RESP 21; O2SAT 98
--- NOTE | 2025-10-11 08:35 | S_PTH ---
PATIENT: Arabella Mcintosh LOC: [facility]#:[id number] AGE/SX: 80/F ROOM: RE10/11/[address]: Deyvi Louis MD : 1945 BED: DIS: 10/11/2025 SPEC #: [id number] RECD: 10/11/25 10:04 STATUS: MITA LUNDY #: [id number] FELICIA: 10/11/25 08:[address]: Deyvi Louis DEPT: [facility] Surgical RECD BY: Ilene Laura ENTERED: 10/11/25 10:05 SP TYPE: Surgical OTHR DR: Noman Robles, Tissues: A - Esophageal Biopsy B - Gastric Biopsy Procedures: Hematoxylin and Eosin Stain Gross and Microscopic Level 4
[2025-10-11 08:43] VITALS: BP 95/49; PULSE 74; RESP 20; O2SAT 97
[2025-10-11 08:53] VITALS: BP 120/73; PULSE 80; RESP 20; O2SAT 99
== END 2025-10-11 08:58 | disposition home or self-care (01) ==
PROVIDERS: PCP Internal Medicine; Referring Provider Internal Medicine; Visit Provider Internal Medicine Gastroenterology
PROC: 0DJ08ZZ Inspection of Upper Intestinal Tract, Via Natural or Artificial Opening Endoscopic (ICD-10-PCS; CPT 43239; principal; 2025-10-11 08:45)
DX: K21.00 Gastro-esophageal reflux disease with esophagitis, without bleeding (principal); K29.70 Gastritis, unspecified, without bleeding; E78.2 Mixed hyperlipidemia; I10 Essential (primary) hypertension; E03.9 Hypothyroidism, unspecified; I35.1 Nonrheumatic aortic (valve) insufficiency; I35.0 Nonrheumatic aortic (valve) stenosis; F17.290 Nicotine dependence, other tobacco product, uncomplicated; Z79.52 Long term (current) use of systemic steroids; Z79.891 Long term (current) use of opiate analgesic
CPT/HCPCS: 43239; 43450; 88305; J2704; J7120